=== PATIENT | male | born 1945 | race Caucasian/White ===

== ENCOUNTER 2019-01-22 13:29 | Inpatient (IN) | payer OTHER, MEDICARE ==
[~2019-01-22] VITALS: Ht 175.3 cm; Wt 75.3 kg
[2019-01-22 14:39] LABS: PLATELET COUNT 239 x10^3mcL (130-400)
[2019-01-22 14:40] LABS: BASOPHIL % 0 % (0-2); RED CELL DISTRIBUTION WIDTH 14.6 % (11.5-14.5)
[2019-01-22 14:46] LABS: CALCIUM 8.9 mg/dL (8.5-10.1); CARBON DIOXIDE 32.1 mmol/L (21-32); CHLORIDE SERUM 104 mmol/L (98-107); CREATININE SERUM 0.8 mg/dL (0.7-1.3); GLUCOSE SERUM 130 mg/dL (74-106); POTASSIUM SERUM 4.1 mmol/L (3.5-5.1); SODIUM SERUM 142 mmol/L (136-145)
[2019-01-22 14:58] LABS: ALBUMIN 3.4 g/dL (3.4-5.0); ALKALINE PHOSPHATASE 61 U/L (46-116); ALT/SGPT 27 U/L (16-63); AST/SGOT 19 U/L (15-37); TOTAL PROTEIN, SERUM 7.9 g/dL (6.4-8.2)
[2019-01-22 15:05] LABS: T4(THYROXINE) 9.6 ug/dL (4.7-13.3)
[2019-01-22 15:18] LABS: microscopic required? NO
[2019-01-22 15:21] LABS: CK-MB 3.3 ng/mL (0-3.6)
[2019-01-22 15:34] LABS: UA SPECIFIC GRAVITY >=1.030 (1.005-1.035); urine erythrocyte NEGATIVE (NEGATIVE)
[2019-01-22 15:37] LABS: BILIRUBIN TOTAL 0.17 mg/dL (0.20-1.00)
[2019-01-22 16:50] LABS: CHOLESTEROL/HDL RATIO 3.3; MAGNESIUM 2.2 mg/dL (1.8-2.4); PHOSPHOROUS 4.8 mg/dL (2.5-4.9)
[2019-01-22 17:36] LABS: AMPHETAMINE QUAL UR NONE DETECTED (See below)
[2019-01-22 17:41] VITALS: BP 135/73
[2019-01-22] MEDS ORDERED: NOR5 PO (17:46)
[2019-01-22] MEDS ORDERED: REM15 PO (17:48)
[2019-01-22] MEDS ORDERED: ASPIR 8181 MG PO (17:48)
[2019-01-22] MEDS ORDERED: PLA75 PO (17:49)
[2019-01-22] MEDS ORDERED: ZYPREXA15 M1 PO (17:49)
[2019-01-22 21:24] VITALS: BP 140/71
[2019-01-23 05:52] VITALS: BP 137/65
[2019-01-23 07:36] LABS: PLATELET COUNT 209 x10^3mcL (130-400); RED CELL DISTRIBUTION WIDTH 14.5 % (11.5-14.5)
[2019-01-23 07:48] LABS: BASOPHIL % 0 % (0-2)
[2019-01-23 07:59] VITALS: BP 139/70
[2019-01-23 08:08] LABS: CALCIUM 8.6 mg/dL (8.5-10.1); CARBON DIOXIDE 28.4 mmol/L (21-32); CHLORIDE SERUM 108 mmol/L (98-107); CREATININE SERUM 0.6 mg/dL (0.7-1.3); GLUCOSE SERUM 127 mg/dL (74-106); POTASSIUM SERUM 4.4 mmol/L (3.5-5.1); SODIUM SERUM 142 mmol/L (136-145)
[2019-01-23 12:15] VITALS: BP 155/65
[2019-01-23 16:42] VITALS: BP 126/66
[2019-01-23 21:38] VITALS: BP 143/71
[2019-01-24] VITALS (19 sets, daily range): BP systolic 103–142; BP diastolic 54–102
[2019-01-24 06:52] LABS: CARBON DIOXIDE 27.7 mmol/L (21-32); CHLORIDE SERUM 110 mmol/L (98-107); CREATININE SERUM 0.9 mg/dL (0.7-1.3); GLUCOSE SERUM 130 mg/dL (74-106); MAGNESIUM 2.2 mg/dL (1.8-2.4); PHOSPHOROUS 3.1 mg/dL (2.5-4.9); POTASSIUM SERUM 5.1 mmol/L (3.5-5.1); SODIUM SERUM 146 mmol/L (136-145)
[2019-01-24 07:11] LABS: BASOPHIL % 0.8 % (0-2); PLATELET COUNT 190 x10^3mcL (130-400); RED CELL DISTRIBUTION WIDTH 14.5 % (11.5-14.5)
[2019-01-25] VITALS (17 sets, daily range): BP systolic 107–130; BP diastolic 50–98
[2019-01-25 05:52] LABS: PLATELET COUNT 166 x10^3mcL (130-400)
[2019-01-25 05:53] LABS: BASOPHIL % 0 % (0-2); RED CELL DISTRIBUTION WIDTH 14.7 % (11.5-14.5)
[2019-01-25 05:59] LABS: CALCIUM 8.4 mg/dL (8.5-10.1); CARBON DIOXIDE 35.2 mmol/L (21-32); CHLORIDE SERUM 110 mmol/L (98-107); CREATININE SERUM 0.6 mg/dL (0.7-1.3); GLUCOSE SERUM 142 mg/dL (74-106); MAGNESIUM 2.7 mg/dL (1.8-2.4); POTASSIUM SERUM 4.4 mmol/L (3.5-5.1); SODIUM SERUM 148 mmol/L (136-145)
[2019-01-26] VITALS (17 sets, daily range): BP systolic 107–145; BP diastolic 33–75
[2019-01-26 05:33] LABS: PLATELET COUNT 176 x10^3mcL (130-400)
[2019-01-26 05:42] LABS: BASOPHIL % 0 % (0-2)
[2019-01-26 05:47] LABS: CALCIUM 8.1 mg/dL (8.5-10.1); CARBON DIOXIDE 32.1 mmol/L (21-32); CHLORIDE SERUM 110 mmol/L (98-107); CREATININE SERUM 0.6 mg/dL (0.7-1.3); GLUCOSE SERUM 163 mg/dL (74-106); MAGNESIUM 2.7 mg/dL (1.8-2.4); PHOSPHOROUS 3.2 mg/dL (2.5-4.9); POTASSIUM SERUM 3.8 mmol/L (3.5-5.1); SODIUM SERUM 146 mmol/L (136-145)
[2019-01-27] VITALS (16 sets, daily range): BP systolic 77–123; BP diastolic 45–78
[2019-01-27 05:02] LABS: PLATELET COUNT 215 x10^3mcL (130-400)
[2019-01-27 05:09] LABS: CALCIUM 7.9 mg/dL (8.5-10.1); CARBON DIOXIDE 34.7 mmol/L (21-32); CHLORIDE SERUM 107 mmol/L (98-107); CREATININE SERUM 0.7 mg/dL (0.7-1.3); GLUCOSE SERUM 152 mg/dL (74-106); MAGNESIUM 2.4 mg/dL (1.8-2.4); PHOSPHOROUS 3.9 mg/dL (2.5-4.9); POTASSIUM SERUM 4.1 mmol/L (3.5-5.1); SODIUM SERUM 146 mmol/L (136-145)
[2019-01-27 05:10] LABS: BASOPHIL % 0 % (0-2); RED CELL DISTRIBUTION WIDTH 15.3 % (11.5-14.5)
[2019-01-28] VITALS (19 sets, daily range): BP systolic 83–119; BP diastolic 47–64
[2019-01-28 05:07] LABS: PLATELET COUNT 173 x10^3mcL (130-400); RED CELL DISTRIBUTION WIDTH 14.5 % (11.5-14.5)
[2019-01-28 05:13] LABS: BASOPHIL % 0 % (0-2)
[2019-01-28 05:26] LABS: CALCIUM 7.8 mg/dL (8.5-10.1); CARBON DIOXIDE 35.2 mmol/L (21-32); CHLORIDE SERUM 106 mmol/L (98-107); CREATININE SERUM 0.5 mg/dL (0.7-1.3); GLUCOSE SERUM 143 mg/dL (74-106); MAGNESIUM 2.4 mg/dL (1.8-2.4); PHOSPHOROUS 4.3 mg/dL (2.5-4.9); POTASSIUM SERUM 4.7 mmol/L (3.5-5.1); SODIUM SERUM 144 mmol/L (136-145)
[2019-01-29] VITALS (18 sets, daily range): BP systolic 88–125; BP diastolic 42–84
[2019-01-29 05:15] LABS: PLATELET COUNT 219 x10^3mcL (130-400)
[2019-01-29 05:17] LABS: RED CELL DISTRIBUTION WIDTH 15.5 % (11.5-14.5)
[2019-01-29 05:25] LABS: CALCIUM 8.1 mg/dL (8.5-10.1); CARBON DIOXIDE 34.3 mmol/L (21-32); CHLORIDE SERUM 106 mmol/L (98-107); CREATININE SERUM 0.5 mg/dL (0.7-1.3); GLUCOSE SERUM 157 mg/dL (74-106); MAGNESIUM 2.5 mg/dL (1.8-2.4); POTASSIUM SERUM 4.4 mmol/L (3.5-5.1); SODIUM SERUM 144 mmol/L (136-145)
[2019-01-29 05:40] LABS: BAND NEUTROPHIL 4 % (0-10); MONOCYTE 5 % (0-7); MYELOCYTE 1 % (0-2); SEGMENTED NEUTROPHILS 76 % (37-75)
[2019-01-29 05:51] LABS: PLATELET MORPHOLOGY PLATELETS NORMAL; acanthocyte (spur cell) 1+; rbc morphology (normal/abnorm) ABNORMAL (NORMAL)
[2019-01-29 13:23] LABS: FREE T4 1.2 ng/dL (0.76-1.46)
[2019-01-30] VITALS (18 sets, daily range): BP systolic 90–119; BP diastolic 43–69
[2019-01-30 04:55] LABS: PLATELET COUNT 204 x10^3mcL (130-400)
[2019-01-30 05:05] LABS: RED CELL DISTRIBUTION WIDTH 15.6 % (11.5-14.5)
[2019-01-30 05:20] LABS: CALCIUM 8.1 mg/dL (8.5-10.1); CARBON DIOXIDE 32.3 mmol/L (21-32); CHLORIDE SERUM 102 mmol/L (98-107); CREATININE SERUM 0.6 mg/dL (0.7-1.3); GLUCOSE SERUM 157 mg/dL (74-106); MAGNESIUM 2.4 mg/dL (1.8-2.4); PHOSPHOROUS 3.2 mg/dL (2.5-4.9)
[2019-01-30 05:46] LABS: BAND NEUTROPHIL 2 % (0-10); MONOCYTE 4 % (0-7); SEGMENTED NEUTROPHILS 79 % (37-75)
[2019-01-30 05:50] LABS: rbc morphology (normal/abnorm) ABNORMAL (NORMAL)
[2019-01-30 05:51] LABS: PLATELET MORPHOLOGY PLATELETS NORMAL
[2019-01-30 07:34] LABS: SODIUM SERUM 138 mmol/L (136-145)
[2019-01-31] VITALS (18 sets, daily range): BP systolic 93–152; BP diastolic 57–111
[2019-01-31 05:34] LABS: PLATELET COUNT 260 x10^3mcL (130-400)
[2019-01-31 05:35] LABS: CALCIUM 8.6 mg/dL (8.5-10.1); CARBON DIOXIDE 33.8 mmol/L (21-32); CHLORIDE SERUM 102 mmol/L (98-107); CREATININE SERUM 0.5 mg/dL (0.7-1.3); GLUCOSE SERUM 140 mg/dL (74-106); MAGNESIUM 2.3 mg/dL (1.8-2.4); POTASSIUM SERUM 4.3 mmol/L (3.5-5.1); SODIUM SERUM 138 mmol/L (136-145)
[2019-01-31 05:36] LABS: RED CELL DISTRIBUTION WIDTH 14.9 % (11.5-14.5)
[2019-01-31 09:30] LABS: BAND NEUTROPHIL 4 % (0-10); BASOPHIL 0 % (0-2); MONOCYTE 11 % (0-7); SEGMENTED NEUTROPHILS 79 % (37-75)
[2019-01-31 09:32] LABS: PLATELET MORPHOLOGY PLATELETS NORMAL; rbc morphology (normal/abnorm) ABNORMAL (NORMAL)
[2019-02-01] VITALS (19 sets, daily range): BP systolic 85–125; BP diastolic 42–92
[2019-02-01 05:29] LABS: PLATELET COUNT 259 x10^3mcL (130-400)
[2019-02-01 05:35] LABS: CALCIUM 8.5 mg/dL (8.5-10.1); CARBON DIOXIDE 33.7 mmol/L (21-32); CHLORIDE SERUM 102 mmol/L (98-107); CREATININE SERUM 0.6 mg/dL (0.7-1.3); GLUCOSE SERUM 118 mg/dL (74-106); POTASSIUM SERUM 4.3 mmol/L (3.5-5.1); RED CELL DISTRIBUTION WIDTH 15.1 % (11.5-14.5); SODIUM SERUM 139 mmol/L (136-145)
[2019-02-01 06:01] LABS: BAND NEUTROPHIL 8 % (0-10); BASOPHIL 0 % (0-2); MONOCYTE 9 % (0-7); SEGMENTED NEUTROPHILS 71 % (37-75); rbc morphology (normal/abnorm) ABNORMAL (NORMAL)
[2019-02-01 06:02] LABS: PLATELET MORPHOLOGY PLATELETS NORMAL
[2019-02-02] VITALS (9 sets, daily range): BP systolic 112–135; BP diastolic 51–70
[2019-02-02 05:16] LABS: BASOPHIL % 0.1 % (0-2); PLATELET COUNT 274 x10^3mcL (130-400)
[2019-02-02 05:17] LABS: RED CELL DISTRIBUTION WIDTH 15.4 % (11.5-14.5)
[2019-02-02 05:27] LABS: CALCIUM 8.4 mg/dL (8.5-10.1); CARBON DIOXIDE 32.3 mmol/L (21-32); CHLORIDE SERUM 103 mmol/L (98-107); CREATININE SERUM 0.6 mg/dL (0.7-1.3); GLUCOSE SERUM 131 mg/dL (74-106); MAGNESIUM 2.1 mg/dL (1.8-2.4); PHOSPHOROUS 3.3 mg/dL (2.5-4.9); POTASSIUM SERUM 4.1 mmol/L (3.5-5.1); SODIUM SERUM 139 mmol/L (136-145)
[2019-02-03 00:10] VITALS: BP 117/52
[2019-02-03 03:18] VITALS: BP 119/54
[2019-02-03 05:21] LABS: CALCIUM 8.5 mg/dL (8.5-10.1); CARBON DIOXIDE 32.1 mmol/L (21-32); CHLORIDE SERUM 104 mmol/L (98-107); CREATININE SERUM 0.8 mg/dL (0.7-1.3); GLUCOSE SERUM 89 mg/dL (74-106); MAGNESIUM 2.2 mg/dL (1.8-2.4); PHOSPHOROUS 3.1 mg/dL (2.5-4.9); POTASSIUM SERUM 3.9 mmol/L (3.5-5.1); SODIUM SERUM 140 mmol/L (136-145)
[2019-02-03 05:37] LABS: BASOPHIL % 0.3 % (0-2); PLATELET COUNT 289 x10^3mcL (130-400)
[2019-02-03 05:49] LABS: RED CELL DISTRIBUTION WIDTH 15.3 % (11.5-14.5)
[2019-02-03 08:00] VITALS: BP 107/52
[2019-02-03 12:45] VITALS: BP 131/61
[2019-02-03 16:00] VITALS: BP 128/58
[2019-02-03 20:00] VITALS: BP 129/58
[2019-02-04 05:31] VITALS: BP 132/58
[2019-02-04 08:43] LABS: BASOPHIL % 0.3 % (0-2); PLATELET COUNT 306 x10^3mcL (130-400)
[2019-02-04 08:44] LABS: RED CELL DISTRIBUTION WIDTH 16.1 % (11.5-14.5)
[2019-02-04 08:52] VITALS: BP 135/59
[2019-02-04 08:57] LABS: CALCIUM 8.8 mg/dL (8.5-10.1); CARBON DIOXIDE 33.2 mmol/L (21-32); CHLORIDE SERUM 102 mmol/L (98-107); CREATININE SERUM 0.7 mg/dL (0.7-1.3); GLUCOSE SERUM 96 mg/dL (74-106); MAGNESIUM 2.1 mg/dL (1.8-2.4); POTASSIUM SERUM 3.9 mmol/L (3.5-5.1); SODIUM SERUM 138 mmol/L (136-145)
[2019-02-04 13:28] VITALS: BP 133/67
[2019-02-04 17:09] VITALS: BP 142/67
[2019-02-04 21:58] VITALS: BP 129/53
[2019-02-05 05:15] VITALS: BP 135/60
[2019-02-05 06:35] LABS: CALCIUM 8.8 mg/dL (8.5-10.1); CARBON DIOXIDE 33.2 mmol/L (21-32); CHLORIDE SERUM 105 mmol/L (98-107); CREATININE SERUM 0.6 mg/dL (0.7-1.3); GLUCOSE SERUM 107 mg/dL (74-106); MAGNESIUM 2.2 mg/dL (1.8-2.4); PHOSPHOROUS 3.5 mg/dL (2.5-4.9); POTASSIUM SERUM 4.3 mmol/L (3.5-5.1); SODIUM SERUM 143 mmol/L (136-145)
[2019-02-05 06:36] LABS: BASOPHIL % 0.1 % (0-2); PLATELET COUNT 302 x10^3mcL (130-400); RED CELL DISTRIBUTION WIDTH 16.3 % (11.5-14.5)
[2019-02-05 09:31] VITALS: BP 141/69
[2019-02-05 13:31] VITALS: BP 128/81
[2019-02-05 16:38] VITALS: BP 127/79
[2019-02-05 21:16] VITALS: BP 115/55
[2019-02-06 05:42] VITALS: BP 125/53
[2019-02-06 07:30] LABS: CALCIUM 8.6 mg/dL (8.5-10.1); CARBON DIOXIDE 32.2 mmol/L (21-32); CHLORIDE SERUM 105 mmol/L (98-107); CREATININE SERUM 0.6 mg/dL (0.7-1.3); GLUCOSE SERUM 92 mg/dL (74-106); MAGNESIUM 2.1 mg/dL (1.8-2.4); PHOSPHOROUS 2.8 mg/dL (2.5-4.9); POTASSIUM SERUM 3.9 mmol/L (3.5-5.1); SODIUM SERUM 143 mmol/L (136-145)
[2019-02-06 08:32] LABS: BASOPHIL % 0.1 % (0-2); PLATELET COUNT 298 x10^3mcL (130-400); RED CELL DISTRIBUTION WIDTH 16.5 % (11.5-14.5)
[2019-02-06 08:34] VITALS: BP 138/63
[2019-02-06 12:30] VITALS: BP 143/53
[2019-02-06 16:07] VITALS: BP 117/57
[2019-02-06 20:39] VITALS: BP 124/53
[2019-02-07] VITALS (14 sets, daily range): BP systolic 74–140; BP diastolic 16–73
[2019-02-07 07:09] LABS: BASOPHIL % 0.2 % (0-2); PLATELET COUNT 310 x10^3mcL (130-400); RED CELL DISTRIBUTION WIDTH 17.4 % (11.5-14.5)
[2019-02-07 08:20] LABS: CALCIUM 8.7 mg/dL (8.5-10.1); CARBON DIOXIDE 33.6 mmol/L (21-32); CHLORIDE SERUM 105 mmol/L (98-107); CREATININE SERUM 0.7 mg/dL (0.7-1.3); GLUCOSE SERUM 107 mg/dL (74-106); MAGNESIUM 2.2 mg/dL (1.8-2.4); POTASSIUM SERUM 3.6 mmol/L (3.5-5.1); SODIUM SERUM 143 mmol/L (136-145)
[2019-02-08] VITALS (19 sets, daily range): BP systolic 89–127; BP diastolic 40–67
[2019-02-08 05:34] LABS: PLATELET COUNT 221 x10^3mcL (130-400)
[2019-02-08 06:06] LABS: CALCIUM 7.8 mg/dL (8.5-10.1); CARBON DIOXIDE 26.5 mmol/L (21-32); CHLORIDE SERUM 110 mmol/L (98-107); GLUCOSE SERUM 153 mg/dL (74-106); POTASSIUM SERUM 3.4 mmol/L (3.5-5.1); SODIUM SERUM 143 mmol/L (136-145)
[2019-02-08 06:08] LABS: RED CELL DISTRIBUTION WIDTH 18.1 % (11.5-14.5)
[2019-02-08 06:18] LABS: BAND NEUTROPHIL 8 % (0-10); MONOCYTE 2 % (0-7); SEGMENTED NEUTROPHILS 83 % (37-75)
[2019-02-08 06:22] LABS: rbc morphology (normal/abnorm) ABNORMAL (NORMAL)
[2019-02-08 06:23] LABS: PLATELET MORPHOLOGY PLATELETS NORMAL
[2019-02-09] VITALS (16 sets, daily range): BP systolic 108–135; BP diastolic 50–76
[2019-02-09 05:25] LABS: PLATELET COUNT 210 x10^3mcL (130-400)
[2019-02-09 05:37] LABS: CALCIUM 8.3 mg/dL (8.5-10.1); CHLORIDE SERUM 111 mmol/L (98-107); CREATININE SERUM 0.7 mg/dL (0.7-1.3); GLUCOSE SERUM 116 mg/dL (74-106); MAGNESIUM 2.1 mg/dL (1.8-2.4); PHOSPHOROUS 1.7 mg/dL (2.5-4.9); POTASSIUM SERUM 3.7 mmol/L (3.5-5.1); SODIUM SERUM 134 mmol/L (136-145)
[2019-02-09 05:48] LABS: BASOPHIL % 0 % (0-2); RED CELL DISTRIBUTION WIDTH 18.3 % (11.5-14.5)
[2019-02-10] VITALS (18 sets, daily range): BP systolic 117–154; BP diastolic 38–99
[2019-02-10 05:18] LABS: PLATELET COUNT 200 x10^3mcL (130-400)
[2019-02-10 05:22] LABS: CALCIUM 8.2 mg/dL (8.5-10.1); CHLORIDE SERUM 107 mmol/L (98-107); CREATININE SERUM 0.6 mg/dL (0.7-1.3); GLUCOSE SERUM 123 mg/dL (74-106); PHOSPHOROUS 2.9 mg/dL (2.5-4.9); POTASSIUM SERUM 3.8 mmol/L (3.5-5.1); SODIUM SERUM 142 mmol/L (136-145)
[2019-02-10 05:33] LABS: BASOPHIL % 0 % (0-2); RED CELL DISTRIBUTION WIDTH 18.3 % (11.5-14.5)
[2019-02-11] VITALS (18 sets, daily range): BP systolic 109–146; BP diastolic 38–77
[2019-02-11 05:25] LABS: BASOPHIL % 0.2 % (0-2); PLATELET COUNT 215 x10^3mcL (130-400)
[2019-02-11 05:26] LABS: RED CELL DISTRIBUTION WIDTH 16.5 % (11.5-14.5)
[2019-02-11 05:39] LABS: CALCIUM 8.6 mg/dL (8.5-10.1); CARBON DIOXIDE 26.8 mmol/L (21-32); CHLORIDE SERUM 107 mmol/L (98-107); CREATININE SERUM 0.5 mg/dL (0.7-1.3); GLUCOSE SERUM 124 mg/dL (74-106); MAGNESIUM 2.1 mg/dL (1.8-2.4); PHOSPHOROUS 3.5 mg/dL (2.5-4.9); POTASSIUM SERUM 3.8 mmol/L (3.5-5.1); SODIUM SERUM 141 mmol/L (136-145)
[2019-02-12] VITALS (18 sets, daily range): BP systolic 91–148; BP diastolic 42–78
[2019-02-12 05:25] LABS: BASOPHIL % 0.4 % (0-2); PLATELET COUNT 214 x10^3mcL (130-400)
[2019-02-12 05:30] LABS: RED CELL DISTRIBUTION WIDTH 17.9 % (11.5-14.5)
[2019-02-12 05:48] LABS: CALCIUM 8.7 mg/dL (8.5-10.1); CARBON DIOXIDE 27.3 mmol/L (21-32); CHLORIDE SERUM 106 mmol/L (98-107); CREATININE SERUM 0.6 mg/dL (0.7-1.3); GLUCOSE SERUM 117 mg/dL (74-106); PHOSPHOROUS 3.5 mg/dL (2.5-4.9); POTASSIUM SERUM 3.8 mmol/L (3.5-5.1); SODIUM SERUM 140 mmol/L (136-145)
[2019-02-13] VITALS (18 sets, daily range): BP systolic 86–135; BP diastolic 46–81
[2019-02-13 07:29] LABS: BASOPHIL % 0.1 % (0-2); PLATELET COUNT 234 x10^3mcL (130-400)
[2019-02-13 07:32] LABS: RED CELL DISTRIBUTION WIDTH 17.8 % (11.5-14.5)
[2019-02-13 07:57] LABS: CALCIUM 8.8 mg/dL (8.5-10.1); CARBON DIOXIDE 27.9 mmol/L (21-32); CHLORIDE SERUM 103 mmol/L (98-107); CREATININE SERUM 0.6 mg/dL (0.7-1.3); GLUCOSE SERUM 113 mg/dL (74-106); MAGNESIUM 2.2 mg/dL (1.8-2.4); POTASSIUM SERUM 4.3 mmol/L (3.5-5.1); SODIUM SERUM 135 mmol/L (136-145)
[2019-02-14] VITALS (19 sets, daily range): BP systolic 109–129; BP diastolic 48–77
[2019-02-14 04:51] LABS: BASOPHIL % 1.6 % (0-2); PLATELET COUNT 222 x10^3mcL (130-400); RED CELL DISTRIBUTION WIDTH 16.8 % (11.5-14.5)
[2019-02-14 04:54] LABS: CALCIUM 8.5 mg/dL (8.5-10.1); CARBON DIOXIDE 23.8 mmol/L (21-32); CHLORIDE SERUM 104 mmol/L (98-107); CREATININE SERUM 0.4 mg/dL (0.7-1.3); GLUCOSE SERUM 128 mg/dL (74-106); MAGNESIUM 2.5 mg/dL (1.8-2.4); PHOSPHOROUS 3.2 mg/dL (2.5-4.9); POTASSIUM SERUM 4.2 mmol/L (3.5-5.1); SODIUM SERUM 134 mmol/L (136-145)
[2019-02-15] VITALS (16 sets, daily range): BP systolic 96–153; BP diastolic 53–85
[2019-02-15 05:26] LABS: PLATELET COUNT 267 x10^3mcL (130-400)
[2019-02-15 05:30] LABS: CALCIUM 8.6 mg/dL (8.5-10.1); CARBON DIOXIDE 26.8 mmol/L (21-32); CHLORIDE SERUM 105 mmol/L (98-107); CREATININE SERUM 0.6 mg/dL (0.7-1.3); GLUCOSE SERUM 125 mg/dL (74-106); PHOSPHOROUS 3.2 mg/dL (2.5-4.9); POTASSIUM SERUM 3.4 mmol/L (3.5-5.1); SODIUM SERUM 138 mmol/L (136-145)
[2019-02-15 05:35] LABS: RED CELL DISTRIBUTION WIDTH 17.3 % (11.5-14.5)
[2019-02-15 05:50] LABS: BAND NEUTROPHIL 1 % (0-10); MONOCYTE 8 % (0-7); MYELOCYTE 1 % (0-2); SEGMENTED NEUTROPHILS 64 % (37-75)
[2019-02-15 05:52] LABS: PLATELET MORPHOLOGY PLATELETS NORMAL; rbc morphology (normal/abnorm) ABNORMAL (NORMAL)
[2019-02-16] VITALS (21 sets, daily range): BP systolic 87–132; BP diastolic 49–94; Ht 175.3 cm; Wt 75.3 kg
[2019-02-16 05:22] LABS: BASOPHIL % 0.2 % (0-2); PLATELET COUNT 260 x10^3mcL (130-400)
[2019-02-16 05:28] LABS: RED CELL DISTRIBUTION WIDTH 18.1 % (11.5-14.5)
[2019-02-16 05:42] LABS: CALCIUM 8.7 mg/dL (8.5-10.1); CARBON DIOXIDE 28.5 mmol/L (21-32); CHLORIDE SERUM 103 mmol/L (98-107); CREATININE SERUM 0.6 mg/dL (0.7-1.3); GLUCOSE SERUM 102 mg/dL (74-106); MAGNESIUM 2.1 mg/dL (1.8-2.4); PHOSPHOROUS 3.7 mg/dL (2.5-4.9); POTASSIUM SERUM 4.1 mmol/L (3.5-5.1); SODIUM SERUM 136 mmol/L (136-145)
[2019-02-17] VITALS (18 sets, daily range): BP systolic 96–124; BP diastolic 46–72
[2019-02-17 04:53] LABS: BASOPHIL % 0.4 % (0-2); PLATELET COUNT 285 x10^3mcL (130-400)
[2019-02-17 05:02] LABS: RED CELL DISTRIBUTION WIDTH 18.2 % (11.5-14.5)
[2019-02-17 05:03] LABS: CALCIUM 8.7 mg/dL (8.5-10.1); CARBON DIOXIDE 28.7 mmol/L (21-32); CHLORIDE SERUM 104 mmol/L (98-107); CREATININE SERUM 0.6 mg/dL (0.7-1.3); GLUCOSE SERUM 132 mg/dL (74-106); PHOSPHOROUS 3.1 mg/dL (2.5-4.9); SODIUM SERUM 139 mmol/L (136-145)
[2019-02-18] VITALS (15 sets, daily range): BP systolic 98–159; BP diastolic 39–82
[2019-02-18 04:50] LABS: BASOPHIL % 0.3 % (0-2); PLATELET COUNT 279 x10^3mcL (130-400)
[2019-02-18 04:52] LABS: RED CELL DISTRIBUTION WIDTH 18.3 % (11.5-14.5)
[2019-02-18 04:57] LABS: CALCIUM 8.7 mg/dL (8.5-10.1); CARBON DIOXIDE 31.7 mmol/L (21-32); CHLORIDE SERUM 104 mmol/L (98-107); CREATININE SERUM 0.5 mg/dL (0.7-1.3); GLUCOSE SERUM 132 mg/dL (74-106); MAGNESIUM 2.1 mg/dL (1.8-2.4); PHOSPHOROUS 3.4 mg/dL (2.5-4.9); POTASSIUM SERUM 4.2 mmol/L (3.5-5.1); SODIUM SERUM 138 mmol/L (136-145)
[2019-02-18] MEDS ORDERED: METOPROLOL TART25 M1 NG (14:35)
[2019-02-18] MEDS ORDERED: HEP5I SC (14:35)
== END 2019-02-18 19:45 | DRG 5 ==
LOC: ED 13:29 → IC 16:14 → DU 16:14 → IC 01-24 02:10 → DU 02-03 17:41 → IC 02-03 17:42 → DU 02-03 19:02 → IC 02-07 11:18 → DU 02-07 11:48 → IC 02-07 11:49
PROVIDERS: Emergency Medicine; General Practice; Internal Medicine; Pediatrics Pediatric Cardiology; Specialist; ADMIT Internal Medicine
PROC: 5A1955Z Respiratory Ventilation, Greater than 96 Consecutive Hours (ICD-10-PCS; principal; 2019-01-22)
PROC: 0BH17EZ Insertion of Endotracheal Airway into Trachea, Via Natural or Artificial Opening (ICD-10-PCS; 2019-01-22)
PROC: 0DB68ZX Excision of Stomach, Via Natural or Artificial Opening Endoscopic, Diagnostic (ICD-10-PCS; 2019-01-25)
PROC: 5A1955Z Respiratory Ventilation, Greater than 96 Consecutive Hours (ICD-10-PCS; 2019-02-07)
PROC: 0BH17EZ Insertion of Endotracheal Airway into Trachea, Via Natural or Artificial Opening (ICD-10-PCS; 2019-02-07)
PROC: 0B110F4 Bypass Trachea to Cutaneous with Tracheostomy Device, Open Approach (ICD-10-PCS; 2019-02-15)
PROC: 0DH68UZ Insertion of Feeding Device into Stomach, Via Natural or Artificial Opening Endoscopic (ICD-10-PCS; 2019-02-15)
DX: J96.21 Acute and chronic respiratory failure with hypoxia (principal); J69.0 Pneumonitis due to inhalation of food and vomit; N17.0 Acute kidney failure with tubular necrosis; E87.0 Hyperosmolality and hypernatremia; E44.1 Mild protein-calorie malnutrition; K56.7 Ileus, unspecified; E83.51 Hypocalcemia; J96.22 Acute and chronic respiratory failure with hypercapnia; J44.1 Chronic obstructive pulmonary disease with (acute) exacerbation; J61 Pneumoconiosis due to asbestos and other mineral fibers; F20.0 Paranoid schizophrenia; E02 Subclinical iodine-deficiency hypothyroidism; I47.1 Supraventricular tachycardia; I10 Essential (primary) hypertension; E78.5 Hyperlipidemia, unspecified; D64.9 Anemia, unspecified; I25.2 Old myocardial infarction; Z68.24 Body mass index [BMI] 24.0-24.9, adult; Z87.891 Personal history of nicotine dependence
CPT/HCPCS: 31500; 36600; 43235; 82962; 84439; 92526-GN; 92610; 97110-GP; 97112-GP; 97116-GP; 97530-GP; 99406; A4628; C9113; J0282; J0330; J0690; J0744; J1200; J1450; J1610; J1644; J1940; J2060; J2250; J2310; J2405; J2543; J2704; J2920; J2930; J3010; J3370; J3480; J3490; J7030; J7040; J7042; J7120; J7512; J7613; J7620; J7626; J7644; Q0092

== ENCOUNTER 2019-02-23 10:15 | Inpatient (IN) | payer OTHER, MEDICARE ==
[~2019-02-23] VITALS: Ht 170.2 cm; Wt 72.0 kg
[2019-02-23] VITALS (8 sets, daily range): BP systolic 84–137; BP diastolic 44–78
[~2019-02-23 10:15] MED LIST: ASPIR 8181 MG PO; HEP5I SC; METOPROLOL TART25 M1 NG; NOR5 PO; PLA75 PO; REM15 PO; ZYPREXA15 M1 PO
--- NOTE | 2019-02-23 10:30 | NUR ---
PATIENT BROUGHT IN BY [facility] [place] WITH C/O VOMITING OF COFFEE GROUND COLORED EMESIS. PATIENT IS HAS A TRACH IN PLACE AND WAS IMMEDIATELY VENTED BY PRODUCTION BROACHER. BREATH SOUNDS CONGESTED WITH VENT IN PLACE BILATERAL UPPER AND LOWER LOBES. ABD DISTENDED, NON TENDER WITH BS HEARD ON ALL 4 QUADS. STAGE 1 WOUND ON BUTTOCKS NOTED. PATIENT PLACED ON ALL MONITORS FOR FURTHER EVALUATION.
[2019-02-23 10:47] LABS: PLATELET COUNT 372 x10^3mcL (130-400)
[2019-02-23 10:49] LABS: RED CELL DISTRIBUTION WIDTH 16.9 % (11.5-14.5)
[2019-02-23] MEDS ORDERED: TYLENOL325 M1 GT (10:50)
[2019-02-23] MEDS ORDERED: ZOF4 GT (10:50)
[2019-02-23] MEDS ORDERED: MOM GT (10:51)
[2019-02-23] MEDS ORDERED: COLACE100 MG GT (10:51)
[2019-02-23] MEDS ORDERED: MUCINEX600 MG GT (10:52)
[2019-02-23] MEDS ORDERED: DULCOLAX10 M1 PR (10:52)
[2019-02-23] MEDS ORDERED: PLA75 GT (10:54)
[2019-02-23] MEDS ORDERED: ASPIRIN ADULT L81 M5 GT (10:54)
[2019-02-23] MEDS ORDERED: MIRTAZAPINE15 M2 GT (10:55)
[2019-02-23] MEDS ORDERED: AMLODIPINE BESYL5 M2 GT (10:56)
--- NOTE | 2019-02-23 10:57 | NUR ---
MED REC COMPLETED USING MED REC FORM FROM [facility].
[2019-02-23 11:04] LABS: CALCIUM 9.5 mg/dL (8.5-10.1); CARBON DIOXIDE 39.5 mmol/L (21-32); CHLORIDE SERUM 90 mmol/L (98-107); CREATININE SERUM 0.9 mg/dL (0.7-1.3); GLUCOSE SERUM 156 mg/dL (74-106); POTASSIUM SERUM 4.6 mmol/L (3.5-5.1); SODIUM SERUM 133 mmol/L (136-145)
[2019-02-23 11:09] LABS: ALBUMIN 2.4 g/dL (3.4-5.0); ALKALINE PHOSPHATASE 70 U/L (46-116); ALT/SGPT 13 U/L (16-63); AST/SGOT 11 U/L (15-37); BILIRUBIN TOTAL 0.5 mg/dL (0.20-1.00); TOTAL PROTEIN, SERUM 7.1 g/dL (6.4-8.2)
--- NOTE | 2019-02-23 11:16 | NUR ---
CLEANED PATIENT UP, PROVIDED CLEAN GOWN AND CHANGED DIAPER- NO S/S OF DISTRESS NOTED. WILL CONTINUE TO MONITOR.
[2019-02-23 11:59] LABS: BAND NEUTROPHIL 17 % (0-10); BASOPHIL 0 % (0-2); MONOCYTE 8 % (0-7); SEGMENTED NEUTROPHILS 63 % (37-75)
[2019-02-23 12:00] LABS: rbc morphology (normal/abnorm) ABNORMAL (NORMAL)
[2019-02-23 12:01] LABS: PLATELET MORPHOLOGY PLATELETS NORMALPN
--- NOTE | 2019-02-23 12:08 | NUR ---
BEDSIDE INSERTING CATH
--- NOTE | 2019-02-23 12:37 | NUR ---
XRAY AT BEDSIDE CONFIRMING CENTRAL LINE
--- NOTE | 2019-02-23 13:22 | NUR ---
PATIENT RESTING COMFORTABLY ON GURNEY. NO S/S OF DISTRESS NOTED. SIDE RAILS UP, GURNEY IN LOW POSITION. PATIENT REQUESTED LIGHTS OFF SO HE CAN REST. WILL CONTINUE TO MONITOR.
--- NOTE | 2019-02-23 13:33 | NUR ---
LACTID ACID, 2.1, ER NOTIFIED.
--- NOTE | 2019-02-23 16:40 | NUR ---
RESPIRATORY AT BEDSIDE MANAGING TRACH AND CHANGING STRAPS. PATIENT TOLERATED WELL. PATIENT CLEANED UP, LINENS CHANGED AND CLEAN GOWN PLACED ON PATIENT. PATIENT BACK ON ALL MONITORS. WILL CONTINUE TO MONITOR.
--- NOTE | 2019-02-23 17:01 | NUR ---
PATIENT RESTING COMFORTABLY ON GURNEY. NO S/S OF DISTRESS NOTED. WILL CONTINUE TO MONITOR.
--- NOTE | 2019-02-23 17:21 | NUR ---
REPORT GIVEN TO KEL NYE ICU FOR FURTHER CARE OF PATIENT.
--- NOTE | 2019-02-23 17:32 | NUR ---
TRANSFER TO ICU ASSISTED BY RT, RN AND EMT.
--- NOTE | 2019-02-23 17:40 | NUR ---
RECEIVED REPORT FROM KEL NICKERSON. PT IS ALERT AND RESPONSIVE TO COMMANDS. PUPILS 3 MM AND BRISK BILATERALLY. PT HAS #[address], PATENT, AND INTACT CONNECTED TO VENT. TRACH SITE IS RED, AND PAINFUL TO THE TOUCH. PT ALSO HAS DARK BROWN SECRETIONS COMING FROM SITE, DR. PRICE MADE AWARE. VENT SETTINGS INCLUDE RATE: 14, TV: 500, O2: 30%, PEEP: 5. RNGT PATENT, AND INTACT. PEG TUBE PATENT, AND INTACT TO LUQ. PT IS BREATHING E/U. LUNG SOUNDS SHOW COURSE CRACKLES TO BUL, DIMINISHED TO BLL. S1 S2 HEART SOUNDS AUSCULTATED. RIJ CVC PATENT, INTACT WITH LARGE AMT OF BLOODY DRAINAGE. SAND BAG PLACED TO SITE FOR CLOTTING. NS INFUSING AT 120 ML/HR. +1 EDEMA TO BLE. SCD IN PLACE. ABD IS SOFT AND DISTENDED WITH HYPOACTIVE BOWEL SOUNDS X4Q. PT INCONTINENT OF URINE AND BOWELS. PT HAS OPEN WOUND TO R BUTTOCK WITH OPTIFOAM IN PLACE. PT HAS LLQ OPEN WOUND OPEN TO AIR. BUE ECCHYMOSIS. BED IN LOWEST POSITION. CALL LIGHT IN REACH.
--- NOTE | 2019-02-23 19:00 | NUR ---
ATTEMPTED NIXON INSERTION AND WAS UNSUCCESSFUL TWICE WITH 16 FR, AND 14 FR. WILL ATTEMPT AGAIN IN A COUPLE HOURS. PT IS INCONTINENT OF URINE.
--- NOTE | 2019-02-23 21:10 | NUR ---
PT CONNECTED TO INTERMITTENT SUCTION FROM G TUBE. NGT PLACEMENT HAS NOT BEEN VERIFIED, THEREFORE NOT IN USE AT THIS TIME.
--- NOTE | 2019-02-23 21:51 | NUR ---
COLLECTED GASTRIC SECRETIONS FOR OCCULT BLOOD TEST FROM NGT. WILL SEND TO LAB.
[2019-02-24] VITALS (16 sets, daily range): BP systolic 88–118; BP diastolic 45–75
--- NOTE | 2019-02-24 01:17 | NUR ---
REMOVED NG TUBE FROM RIGHT NARE. PT KEPT TEARING TAPE OFF NOSE. EDUCATED PT MANY TIMES NOT TO REMOVE, WITH NO SUCCESS. NGT NOT NECESSARY, AND PER DR. PRICE, WAS TOLD TO REMOVE DUE TO PT HAVING ACCESS THROUGH PEG TUBE.
--- NOTE | 2019-02-24 01:18 | NUR ---
PT RIJ CVC DRESSING CHANGED. SAND BAG REMOVED FROM SITE.
--- NOTE | 2019-02-24 01:40 | NUR ---
CHARLI ZUÑIGA COLLECTED SPUTUM CULTURE AT BEDSIDE.
[2019-02-24 05:05] LABS: CALCIUM 7.7 mg/dL (8.5-10.1); CARBON DIOXIDE 29.8 mmol/L (21-32); CHLORIDE SERUM 100 mmol/L (98-107); CREATININE SERUM 0.8 mg/dL (0.7-1.3); GLUCOSE SERUM 80 mg/dL (74-106); MAGNESIUM 2.7 mg/dL (1.8-2.4); PHOSPHOROUS 4.3 mg/dL (2.5-4.9); POTASSIUM SERUM 4.4 mmol/L (3.5-5.1); SODIUM SERUM 135 mmol/L (136-145)
[2019-02-24 05:20] LABS: BASOPHIL % 0.1 % (0-2); PLATELET COUNT 225 x10^3mcL (130-400)
[2019-02-24 05:24] LABS: RED CELL DISTRIBUTION WIDTH 17.3 % (11.5-14.5)
[2019-02-24 05:25] LABS: rbc morphology (normal/abnorm) ABNORMAL (NORMAL)
--- NOTE | 2019-02-24 05:36 | NUR ---
NIXON PLACED. PT TOLERATED WELL.
--- NOTE | 2019-02-24 06:15 | NUR ---
PT SIGNED CONSENT FOR BLOOD TRANSFUSION. CONSENT FORM PLACED IN CHART.
--- NOTE | 2019-02-24 07:15 | NUR ---
RECIEVED REPORT FROM KEL NYE TO ASSUME ALL CARES. ALL QUESTIONS AND CONCERNS ADDRESSED. PATIENT CURRENLTY AWAKE/ALERT. TRACH TO VENT. RESPIRATIONS ARE EQUAL AND SYMMETRICAL. NO SIGNS OF DISTRESS. VSS. TUBE FEEDINGS INFUSING VIA PEG TUBE. F/C IN PLACE AND DRAINING TO GRAVITY. SCD'S ON TO BLE. FLUIDS INFUSING TO RIGHT SUBCLAVIAN CENTRAL LINE. BED TO LOWEST POSITION, SIDE RAILS UP X2, CALL LIGHT WITHIN REACH. WILL CONTINUE TO MONITOR.
--- NOTE | 2019-02-24 11:45 | NUR ---
FIRST UNIT OF TWO PRBC'S DONE INFUSING AT THIS TIME. TWO NURSE CHECK WITH KEL BANDA AND KEL YODER DONE PRIOR TO BLOOD TRANSFUSION. PATIENT WAS PRE-MEDICATED WITH TYLENLOL AND BENADRYL. PRE-VTIALS AT 0911: TEMP 98.6, HR 85, NIBP 110/61, RR 28, 02 SAT 96%. 15 MIN VITALS AT 0935: TEMP 98.4, HR 80, NIBP 100/47, RR 23, 02 SAT 98%. POST VITALS AT 1145: TEMP 98.3, HR 81, NIBP 108/51, RR 20, 02 SAT 96%. TOTAL OF 300 ML'S INFUSED. NO SIGNS OF ADVERSE REACTION. WILL CONTINUE TO MONITOR.
--- NOTE | 2019-02-24 11:54 | NUR ---
DR. VIVEROS AT BEDSIDE TO ASSESS PATIENT. UPDATES PROVIDED AND POC DISCUSSED. PATIENT REFUSING EGD PROCEDURE AT THIS TIME. NEW ORDERS PROVIDED, WILL FOLLOW AND CONTINUE TO MONITOR.
--- NOTE | 2019-02-24 12:12 | NUR ---
DR. ROTHMAN AT BEDSIDE TO ASSESS PATIENT. UPDATES PROVIDED AND POC DISCUSSED. WILL CONTINUE TO MONITOR.
--- NOTE | 2019-02-24 16:50 | NUR ---
SECOND UNIT OF PRBC'S DONE INFUSING AT THIS TIME. TWO NURSE CHECK DONE WITH SOLO RN AND KEL ODSS PRIOR TO INFUSING STARTING. PRE VITALS AT 1326: TEMP 98.2, HR 76, NIBP 110/52, RR 19, 02 SAT 98%. 15 MIN VITALS AT 1342: TEMP 98.2, HR 78, NIBP 119/57, RR 16, 02 SAT 97%. POST VITALS AT 1650: TEMP 98.4, HR 77, NIBP 118/61, RR 26, 02 SAT 98%. TOTAL OF 300 ML'S INFUSED. NO SIGNS OF ADVERSE REACTION. WILL CONTINUE TO MONITOR.
--- NOTE | 2019-02-24 17:40 | NUR ---
VITAL AF 1.2 TUBE FEEDINGS STARTED AT 20 ML/HR VIA PEG PER DR. VIVEROS ORDER. FWF 30 ML Q 4 HRS. WILL CONTINUE TO MONITOR.
--- NOTE | 2019-02-24 18:15 | NUR ---
PATIENT'S TRACH SITE IS LEAKING LARGE AMOUNT OF FLUID. COMPLETE LINEN CHANGED AND NEW GOWN APPLIED. WARM BLANKET PROVIDED TO PATIENT. PATIENT TOLERATED WELL. WILL CONTINUE TO MONITOR.
--- NOTE | 2019-02-24 19:05 | NUR ---
RECEIVED REPORT FROM SOLO BEGUM. ASSUMING ALL CARE
[2019-02-24 19:09] LABS: BASOPHIL % 0.1 % (0-2); PLATELET COUNT 230 x10^3mcL (130-400)
[2019-02-24 19:12] LABS: RED CELL DISTRIBUTION WIDTH 18.2 % (11.5-14.5)
--- NOTE | 2019-02-24 19:25 | NUR ---
RECEIVED PT LAYING IN BED WITH HOB ELEVATED. PT IS AWAKE/ALERT. ABLE TO FOLLOW COMMANDS. PERRLA NOTED BILAT. RESPONDS TO VERBAL STIMULI. SHILEY 8.[address] ORAL CARE PROVIDED PER VAP PROTOCOL. RIGHT SUBCLAVIAN CVC IN PLACE WITH DRESSING CDI. BREATHING IS E/U ON VENT. RHONCHI NOTED BILAT. VENT SETTINGS: VCV/AC MODE: RATE 14, FIO2 30%, VT 500, PEEP 5. SYMMETRICAL CHEST EXPANSION NOTED. S1/S2 HEART SOUNDS AUSCULTATED. CHEST WALL EQUAL AND SYMMETRICAL. HR 78, BP 113/52 MAP 76. PALPABLE PULSES X4 EXTREMITIES. SKIN IS WARM AND DRY. NONPITTING EDEMA NOTED TO BUE/BLE. SCD IN PLACE. NS INFUSING @ 50 ML/HR. PT ON JEVITY TF VIA PEG INFUSING @ 20 ML/HR WITH 30 ML FWF Q4H. GRV=10, REPLACED. TOLERATING WELL. ABD IS SOFT, ROUND, NONTENDER TO PALPATION. BOWEL SOUNDS ACTIVE X4 QUADRANTS. PEG WITH DRESSING CDI. PT HAS NIXON INTACT/ SECURED, DRAINING VIA GRAVITY WITH DRE COLORED URINE. OPEN WOUND TO RIGHT BUTTOCK WITH OPTIFOAM DRESSING IN PLACE. OPEN WOUND LLQ NOTED ADAM. ECCHYMOSIS NOTED TO BUE. PT REPOSITIONED Q2H AND PRN FOR COMFORT. PT CALM AT THIS TIME. BED IN LOW POSITION. CALL LIGHT IN REACH. WILL CONT TO MONITOR
--- NOTE | 2019-02-24 20:45 | NUR ---
RT AT BEDSIDE FOR BREATHING TREATMENT
[2019-02-25] VITALS (18 sets, daily range): BP systolic 103–124; BP diastolic 49–62; Ht 170.2 cm; Wt 72.0 kg
--- NOTE | 2019-02-25 02:00 | NUR ---
RT AT BEDSIDE FOR BREATHING TREATMENT
--- NOTE | 2019-02-25 04:33 | NUR ---
FITNESS SUPERVISOR AT BEDSIDE
[2019-02-25 04:47] LABS: BASOPHIL % 0.3 % (0-2); PLATELET COUNT 213 x10^3mcL (130-400)
[2019-02-25 04:54] LABS: CARBON DIOXIDE 25.8 mmol/L (21-32); CHLORIDE SERUM 105 mmol/L (98-107); CREATININE SERUM 0.6 mg/dL (0.7-1.3); GLUCOSE SERUM 101 mg/dL (74-106); MAGNESIUM 2.6 mg/dL (1.8-2.4); PHOSPHOROUS 2.6 mg/dL (2.5-4.9); POTASSIUM SERUM 3.3 mmol/L (3.5-5.1); SODIUM SERUM 138 mmol/L (136-145)
--- NOTE | 2019-02-25 05:35 | NUR ---
PT HAD A SOFT BM. FULL BED BATH PROVIDED. GOWN AND LINENS CHANGED. PERICARE, ORAL, NIXON, AND TRACH CARE PROVIDED. HEELS OFFLOADED. COMFORT MEASURES IN PLACE
--- NOTE | 2019-02-25 05:40 | NUR ---
GRV=0. TUBE FEEDING TITRATED TO 30 ML/HR WITH 30 ML FWF Q4H
--- NOTE | 2019-02-25 07:07 | NUR ---
REPORT GIVEN TO SOLO BEGUM. ENDORSING ALL CARE
--- NOTE | 2019-02-25 09:38 | NUR ---
DR. RAYGOZA, DR. JAMES, SHORT PIECE HANDLER AND PRIMARY RN AT BEDSIDE FOR MORNING ROUNDS. PLAN OF CARE DISCUSSED. WILL CONT TO MONITOR.
--- NOTE | 2019-02-25 10:04 | NUR ---
GRV 0 ML. ABD SOFT/ROUND. BOWEL SOUNDS ACTIVE X4 QUADRANTS. TF INCREASED FROM 30 ML/HR TO 40 ML/HR WITH 30 ML FWF Q4H.
[2019-02-25 10:46] LABS: PLATELET COUNT 237 x10^3mcL (130-400)
[2019-02-25 10:47] LABS: RED CELL DISTRIBUTION WIDTH 17.4 % (11.5-14.5)
--- NOTE | 2019-02-25 12:20 | NUR ---
FULL LINEN CHANGE PERFORMED AT THIS TIME. 300 ML LOOSE, STOOL. OPTIFOAM PLACED TO SACRUM OF PT FOR NONBLANCHABLE REDNESS. PT TOLERATED WELL
--- NOTE | 2019-02-25 12:29 | NUR ---
AUTO BENCH MECHANIC AT BEDSIDE. PT REQUESTING SOLID FOODS. EDUCATION PROVIDED ON ASPIRATION. PT VERBALIZES UNDERSTANDING BUT WOULD STILL LIKE MESSAGE TO BE GIVEN TO MD. WILL UPDATE DR. PRICE ON PT'S REQUEST.
[2019-02-25 12:33] LABS: BAND NEUTROPHIL 30 % (0-10); BASOPHIL 0 % (0-2); MONOCYTE 6 % (0-7); SEGMENTED NEUTROPHILS 56 % (37-75)
[2019-02-25 12:35] LABS: PLATELET MORPHOLOGY PLATELETS NORMAL; ovalocyte/elliptocyte 1+; rbc morphology (normal/abnorm) ABNORMAL (NORMAL)
--- NOTE | 2019-02-25 14:01 | NUR ---
DR. ROTHMAN AT BEDSIDE TO ASSESS PT. UPDATED ON PT'S STATUS. DR. PRICE AT BEDSIDE. SPEAKING ABOUT PLAN OF CARE WITH PT. PT CONTINUES TO REFUSE EGD. PT WISHES TO RETURN TOO SNF. DR. ROTHMAN AND DR. PRICE ARE BOTH IN AGREEMENT AND STATE PT CAN BE DISCHARGED SOON BED IS AVAILABLE
--- NOTE | 2019-02-25 15:35 | NUR ---
PT PUT BACK ONTO VCV AC MODE SETTINGS. SAME PREVIOUS. RR 42. LIDA RT MADE AWARE. PT TOLERATED 1.5 HOURS CPAP.
--- NOTE | 2019-02-25 15:42 | NUR ---
Initial Nutrition Assessment- Arvind Hannah Dx: Pneumonia PMHx: Chronic respiratory failure s/p tracheostomy, COPD, Hypertension, Schizophrenia PSHx: Tracheostomy, PEG tube placement Labs: Na 138, K 3.3L, BUN 30.0H, Creat 0.6L, Ca 8.0L, Hgb 8.7L, Hct 25L Meds: Ferrous Sulfate Liquid, KCL 10% 20MEQ/15ml liquid, Lactinex, Protonix packet, Sodium Chloride 0.9%, Zofran Diet: Tube feeding Jevity 1.2 Gastronomy tube. Initial rate 20ml/hr, goal 55ml/hr. Freq. advancement Q12HR, free H2O flush 30ml Q 4H, hold feeding if residuals reach 250ml PO Intake: NPO, Jevity TF at 30ml/hr with 30ml FWF Q4H, tolerating well Ht:170.18cm 67in Wt: 68kg 149# BMI: 23.5kg/m2 Normal Bed scale: 148# IBW:148# %IBW: 100 UBW: 141# Age: 73 Food Allergies: NKA Skin: Ecchymosis to BUE. Wound to right buttock, dressing CDI and wound to LLQ ADAM. Small skin tear to LUE with t covering. Lon: 16 Edema: Trace to LUE, 1+ edema to RUE GI: Last BM 1 on 02/25/19 Pt Visit: Pt was alert and writing a lot about how hungry and thirsty he was. Pt was only using a paper and pen form communication. Pt felt that he was losing weight because he wasn't eating. Spoke with RN and stated that pt was getting 40ml/hr and had no residuals. Per H&P: The patient had approximately 7 episodes of "coffee-colored" emesis. The patient has not had any dark stools or bright red blood in the stools. He denies any abdominal pain at this time. He does note chills, but denies any fever, chest pain, shortness of breath, dysuria, hematuria, pyuria, numbness or tingling. Problem with: N: yes ( per pt a few days ago) V: yes ( per pt a few days ago) D: None C: None Problems with: Chewing: no reported problems pt is on TF Swallowing: issues due to aspiration Current appetite: pt statess wants to eat by mouth because feels hungry Recent wt change: None %wt change: None Vitamin/Supplement use: Was taking Vit. B and E shots 1x/month Special diet at home: None (Regular) Physical activity: Was doing some physical therapy Education: Not applicable at this time Estimated Nutritional Needs Based on actual body weight 68kg Energy: 2040-2380kcal/d (RMR X) (30-35kcal/kg) (due to COPD) Protein: 88-102 g/d (g/kg)- (1.3-1.5gm/kg) (COPD and wound) Fluid: 2040ml/d (30ml per kg) Nutrition Diagnosis Inadequate intake of enteral nutrition r/t increase nutrient needs aeb wound healing and TF not meeting estimated nutritional needs. Intervention 1. Increase Jevity 1.2 to 70cc/hr x 24hours to provide 1680cc/ 2016kcal/ 87g protein/ 1259cc free water qd. 2. Increase H2O flush to 125cc q4 hrs to provide 750cc qd for hydration. Monitor/Evaluate Goal: Pt's tolerance of TF intervention Monitor: Need for PO diet, Labs, GI function, TF tolerance HR F/U 02/27-03/01
--- NOTE | 2019-02-25 15:57 | NUR ---
GRV 0 ML. JEVITY TF INCREASED FROM 40 ML/HR TO 50 ML/HR WITH 30 ML FWF Q4H
--- NOTE | 2019-02-25 15:58 | NUR ---
GRV 0 ML. ABD SOFT, ROUND. TF INCREASED FROM 30 ML/HR TO 40 ML/HR. WILL CONTINUE TO MONITOR
[2019-02-25 16:20] LABS: PLATELET COUNT 215 x10^3mcL (130-400)
[2019-02-25 16:21] LABS: BASOPHIL % 0 % (0-2); RED CELL DISTRIBUTION WIDTH 17.5 % (11.5-14.5)
--- NOTE | 2019-02-25 16:24 | NUR ---
SPOKE WITH DR. PRICE REGARDING SERIAL CBC DRAWS Q6H AND URINE CULTURE. PER DR. PRICE URINE CULTURE AND CBC WILL BE CANCELLED PT IS TO BE DISCHARGED.
--- NOTE | 2019-02-25 16:29 | NUR ---
spoke with dr. mendoza regarding recommendations.
--- NOTE | 2019-02-25 16:57 | NUR ---
ONE SMALL, LOOSE BM CHANGED AT THIS TIME. PT ABLE TO ASSIST WITH POSITIONING.
--- NOTE | 2019-02-25 19:30 | NUR ---
REC'D REPORT FROM KRISTY BEGUM TO ASSUME CARE. PT TRACH'D WITH NO SEDATION AT THIS TIME. PT IS AWAKE, ALERT, ABLE TO FOLLOW COMMANDS. ABLE TO COMMUNICATE WITH WRITING BOARD, GESTURES, AND MOUTHING WORDS. PERRLA NOTED. TRACH TO VENT: AC MODE RATE 14, TV 500, PEEP 5, FIO2 30%. CHEST RISE EQUAL AND SYMMETRICAL. LUNG SOUNDS RHONCHI BUL, DIMNISHED BASES. NO JVD NOTED. TRACHEA MIDLINE. R SUBCLAVIAN CVC INTACT, PORTS PATENT, DSG CDI. SINGING WAITER OR WAITRESS IN PLACE SHOWING NSR WITH HR 74. PEG TUBE INTACT AND SECURED. JEVITY @ 40 ML/HR, FWF 30 ML Q4H. GRV=5ML, REPLACED. ABD DISTENDED, SOFT TO TOUCH. BOWEL SOUNDS ACTIVE. F/C INTACT AND PATENT, DRAINIG VIA GRAVITY YELLOW URINE. PULSES PALPABLE X4. CAP REFILL < [address] TURNED AND REPOSTIIONED Q2H FOR PRESSURE RELIEF. ISOGEL MATTRESS IN PLACE. ALL NEEDS MET AT THIS TIME. WILL CONTINUE TO MONITOR.
--- NOTE | 2019-02-25 21:30 | NUR ---
PT NOTED WITH SMALL AMT OF LOOSE BM, GOOD DEBBI CARE PROVIDED. CHUX CHANGED AND REPOSITIONED.
[2019-02-26] VITALS (15 sets, daily range): BP systolic 111–134; BP diastolic 51–85
--- NOTE | 2019-02-26 01:30 | NUR ---
PT SEEN SLEEPING COMFORTABLY. NO ACUTE DISTRESS NOTED. NO SOB NOTED, RESPS E/U.
--- NOTE | 2019-02-26 04:30 | NUR ---
TOTAL BED BATH PROVIDED. MODERATE SIZED LOOSE BM NOTED. GOOD DEBBI CARE PROVIDED. F/C CARE PROVIDED. LINENS CHANGED. REPOSITIONED TO COMFORT.
[2019-02-26 05:04] LABS: BASOPHIL % 0.1 % (0-2); PLATELET COUNT 233 x10^3mcL (130-400); RED CELL DISTRIBUTION WIDTH 17.8 % (11.5-14.5)
[2019-02-26 05:18] LABS: CALCIUM 7.8 mg/dL (8.5-10.1); CARBON DIOXIDE 25.4 mmol/L (21-32); CHLORIDE SERUM 104 mmol/L (98-107); CREATININE SERUM 0.5 mg/dL (0.7-1.3); GLUCOSE SERUM 116 mg/dL (74-106); MAGNESIUM 2.2 mg/dL (1.8-2.4); POTASSIUM SERUM 4.1 mmol/L (3.5-5.1); SODIUM SERUM 137 mmol/L (136-145)
--- NOTE | 2019-02-26 05:57 | NUR ---
R SUBCLAVIAN CVC DSG CHANGED.
--- NOTE | 2019-02-26 06:03 | NUR ---
DR PRICE AT BEDSIDE, UPDATED ON STATUS, UPDATED ON ABNORMAL LABS.
--- NOTE | 2019-02-26 07:00 | NUR ---
RECEIVED REPORT FROM NOC SHIFT RN HAROON, ALL QUESTIONS AND CONCERNS ADDRESSED AT THIS TIME, WILL ASSUME ALL CARE.
--- NOTE | 2019-02-26 07:22 | NUR ---
RECEIVED PATIENT AWAKE AND ALERT LAYING IN BED. PATIENT FOLLOWS COMMANDS, GCS 15, PERRLA NOTED. PATIENT TRACH TO VENT, SHILEY 8.0 TRACH, VENT SETTINGS: VT 500, PEEP 5, FI02 30%, RATE 14. WHEEZING NOTED IN BILATERAL LUNGS AT THIS TIME, MINIMAL YELLOW SPUTUM NOTED AT TRACH SITE. PATIENT HAS PEG TUBE NOTED RECEIVING JEVITY 1.2 AT GOAL RATE 55 ML/HR WITH A FWF 30 Q4H, NO RESIDUALS NOTED AT THIS TIME. PATIENT ABD APPEARS ROUND AND DISTENDED WITH HYPOACTIVE BOWEL SOUNDS. PATIENT HAS NIXON CATHETER IN PLACE DRAINING TO GRAVITY YELLOW URINE, NO SEDIMENT OR BLOOD NOTED. PATIENT SKIN IS WARM, DRY AND PALE. PATIENT HAS OPEN SKIN TEAR NOTED TO RIGHT BUTTOCK CDI OPTIFOAM DRESSING IN PLACE, LLQ ABD ABRASION PROTECTIVE SIGNAL SUPERINTENDENT, LEFT NECK ABRASION NOTED ADAM. PT IS REPOSITIONED Q2H AND PRN COMFORT. MANAGER PROFESSIONAL DEVELOPMENT NOTED SHOWING NSR. PATIENT DENIES ANY PAIN OR DISTRESS AND DENIES HAVING ANY CURRENT NEEDS. WILL CONTINUE TO MONITOR PT.
--- NOTE | 2019-02-26 09:11 | NUR ---
PT RELAXING IN BED AND DENIES ANY NEEDS. WILL CONTINUE TO MONITOR PT.
--- NOTE | 2019-02-26 11:40 | NUR ---
PT TRACH DRESSING SATURATED IN MUCOUS, CHANGED AND CLEANSED AT THIS TIME.
--- NOTE | 2019-02-26 11:48 | NUR ---
AT BEDSIDE. UPDATES PROVIDED. PER CONTINUE TO CPAP PATIENT.
[2019-02-26] MEDS ORDERED: ZYPREXA15 M1 PEG (12:10)
--- NOTE | 2019-02-26 12:42 | NUR ---
CALLED AT THIS TIME, PER PLACE ORDER FOR NO ASPIRIN, PLAVIX, OR ANY ANTICOAGULANTS AT THIS TIME DUE TO GI BLEED.
--- NOTE | 2019-02-26 15:15 | NUR ---
RT AT BEDSIDE TO PLACE PATIENT ON CPAP 14/04.
--- NOTE | 2019-02-26 15:19 | NUR ---
PT RELAXING IN BED, OCCASIONALLY WRITING ON CLIP BOARD AND DISCUSSING PLAN OF CARE. ALL NEEDS MET. WILL CONTINUE TO MONITOR PT.
[2019-02-26] MEDS ORDERED: FERL GT (15:29)
--- NOTE | 2019-02-26 16:51 | NUR ---
PATIENT WAS ABLE TO CPAP ON 09/04 FOR 1 HOUR THIS AFTERNOON. PLACED PATIENT BACK ON PRIOR SETTINGS DUE TO TACHYPNEA AND AGITATION. WILL ATTEMPT AGAIN TOMORROW.
--- NOTE | 2019-02-26 17:37 | NUR ---
ALL DISCHARGE PAPERWORK PREPARED, DISCHARGE WOUND PICTURES TAKEN AND PLACED IN CHART, FULL BED BATH PROVIDED WITH CHG WIPES AND NIXON CARE. ALL LINEN CHANGED AT THIS TIME. PT DENIES ANY NEEDS. SUBCLAVIAN IV CATH DC'D AT THIS TIME CATH IN TACT.
--- NOTE | 2019-02-26 18:06 | NUR ---
REPORT GIVEN TO KEL LEMA AT [facility]. ALL QUESTIONS AND CONCERNS ADDRESSED AT THIS TIME.
--- NOTE | 2019-02-26 18:15 | NUR ---
PT HAD SMALL LOOSE, GREEN COLORED BM. PT CLEANSED AND PROVIDED NEW LINEN.
--- NOTE | 2019-02-26 19:00 | NUR ---
CCT AT BEDSIDE, REPORT GIVEN TO TOMY RT. PT TRANSFER WITHOUT INCIDENT AT THIS TIME.
== END 2019-02-26 19:00 | DRG 720 ==
LOC: ED 10:15 → IC 14:02
PROVIDERS: Emergency Medicine; ADMIT Internal Medicine
PROC: 5A1945Z Respiratory Ventilation, 24-96 Consecutive Hours (ICD-10-PCS; principal; 2019-02-23)
PROC: 30233N1 Transfusion of Nonautologous Red Blood Cells into Peripheral Vein, Percutaneous Approach (ICD-10-PCS; 2019-02-24)
DX: A41.9 Sepsis, unspecified organism (principal); N17.0 Acute kidney failure with tubular necrosis; J69.0 Pneumonitis due to inhalation of food and vomit; J18.9 Pneumonia, unspecified organism; K56.600 Partial intestinal obstruction, unspecified as to cause; Z99.11 Dependence on respirator [ventilator] status; J96.10 Chronic respiratory failure, unspecified whether with hypoxia or hypercapnia; I95.9 Hypotension, unspecified; Z93.0 Tracheostomy status; K92.0 Hematemesis; J44.9 Chronic obstructive pulmonary disease, unspecified; E83.51 Hypocalcemia; F20.9 Schizophrenia, unspecified; Z93.1 Gastrostomy status; R65.20 Severe sepsis without septic shock; I10 Essential (primary) hypertension; I25.2 Old myocardial infarction; Z68.25 Body mass index [BMI] 25.0-25.9, adult; Z79.82 Long term (current) use of aspirin; Z79.02 Long term (current) use of antithrombotics/antiplatelets
CPT/HCPCS: A4628; C9113; J1956; J2543; J7030; J7050; J7620; J7626; J8597; P9016; Q0092; Q0163; Q9967

== ENCOUNTER 2019-07-21 09:35 | Inpatient (IN) | payer OTHER, MEDICARE ==
[~2019-07-21] VITALS: Ht 167.6 cm; Wt 78.5 kg
[~2019-07-21 09:35] MED LIST changes: +AMLODIPINE BESYL5 M2 GT; +ASPIRIN ADULT L81 M5 GT; +COLACE100 MG GT; +DULCOLAX10 M1 PR; +FERL GT; +MIRTAZAPINE15 M2 GT; +MOM GT; +MUCINEX600 MG GT; +PLA75 GT; +TYLENOL325 M1 GT; +ZOF4 GT; +ZYPREXA15 M1 PEG
[2019-07-21 09:47] VITALS: Ht 167.6 cm; Wt 78.5 kg
--- NOTE | 2019-07-21 09:53 | NUR ---
PT ARRIVES ALERT AND ORIENTED WITH ORIGINAL C/O MIDLINE ABD PAIN. PT ARRIVES WITH TRACH IN PLACE BUT ABLE TO SHAKE HEAD YES OR NO TO QUESTIONS. DENIES PAIN UPON ARRIVAL. ABD IS ROUND AND FIRM TO TOUCH BUT PT DENIES TENDERNESS. PT ARRIVES IN DIAPER WHICH IS CLEAN AT THIS TIME. LUNG SOUNDS ARE DIMINISHED BILATERAL. SKIN IS CLEAN DRY AND INTACT. VSS UPON ARRIVAL AND 02 SAT 95% AT THIS TIME. AWAITING MD HERNANDEZ
--- NOTE | 2019-07-21 10:05 | NUR ---
PER EMS PT BROUGHT IN FOR COFFEE GROUND EMESIS UNKNONW AMOUNT STARTED THIS AM WITH SOFT STOOLS X4 SINCE 11 PM LAST NIGHT. PT DENIES NAUSEA UPON ARRIVAL
--- NOTE | 2019-07-21 10:06 | NUR ---
PT ARRIVES WITH IV SALINE WITH 20MEQ POTASSIUM HL AT THIS TIME
--- NOTE | 2019-07-21 10:07 | NUR ---
PT ARRIVES WITH SSTAFF R.T. FROM RECEIVING FACILITY WITH PORTABLE VENT IN PLACE. AWAIITING R.T. TO ARRIVE TO SWITCH TO HOSPITAL VENT
--- NOTE | 2019-07-21 10:10 | NUR ---
DR BUTLER AT BEDSIDE FOR EVAL
[2019-07-21] MEDS ORDERED: MIRALAX17 GM/Dose TF (10:18)
[2019-07-21] MEDS ORDERED: PEPCID20 MG TF (10:18)
[2019-07-21] MEDS ORDERED: MULTIVITAMIN1 SGL TF (10:19)
[2019-07-21] MEDS ORDERED: REG50I TF (10:19)
[2019-07-21] MEDS ORDERED: CONSTULOSE10 GM/151 TF (10:20)
[2019-07-21] MEDS ORDERED: CARVEDILOL12.5 M1 TF (10:20)
--- NOTE | 2019-07-21 10:57 | NUR ---
pt left to ct with r.t.
[2019-07-21 11:06] LABS: BASOPHIL % 0.1 % (0-2); PLATELET COUNT 265 x10^3mcL (130-400); RED CELL DISTRIBUTION WIDTH 13.5 % (11.5-14.5)
--- NOTE | 2019-07-21 11:08 | NUR ---
PT RETURNED FROM CT VIA GURNEY WITHOUT INCIDENT FOLLOWED BY Pedro Pablo
--- NOTE | 2019-07-21 11:18 | NUR ---
XRAY AT BEDSIDE FOR EVAL
[2019-07-21 11:20] LABS: CALCIUM 8.6 mg/dL (8.5-10.1); CARBON DIOXIDE 38.9 mmol/L (21-32); CHLORIDE SERUM 94 mmol/L (98-107); CREATININE SERUM 0.7 mg/dL (0.7-1.3); GLUCOSE SERUM 139 mg/dL (74-106); POTASSIUM SERUM 3.9 mmol/L (3.5-5.1); SODIUM SERUM 136 mmol/L (136-145)
[2019-07-21 11:25] LABS: ALKALINE PHOSPHATASE 142 U/L (46-116); ALT/SGPT 36 U/L (16-63); AST/SGOT 22 U/L (15-37); BILIRUBIN TOTAL 0.3 mg/dL (0.20-1.00); TOTAL PROTEIN, SERUM 7.1 g/dL (6.4-8.2)
[2019-07-21 11:28] LABS: ALBUMIN 2.4 g/dL (3.4-5.0)
--- NOTE | 2019-07-21 12:01 | NUR ---
PT SMELLS OF BM. CHANGED PT WHO HAD WATERY MEDIUM AMOUNT OF BM. VSS UPON CHANGING AN DNO CHANGE IN R. STATUS
--- NOTE | 2019-07-21 12:28 | NUR ---
CONNECTED TO LIS WITH GTUBE. PT TOLERATING WELL AND GT DRAINING GREENISH FLUID
--- NOTE | 2019-07-21 12:34 | NUR ---
PT TO BE ADMITTED. PT AWARE AND BEING PREPPED
[2019-07-21 13:05] VITALS: BP 125/55; BP 129/56
--- NOTE | 2019-07-21 14:13 | NUR ---
ASSUMED CARE OF PATIENT. ROBOTIC WELDER TOMY PAGED FOR ORDER OF TYLENOL AND BENADRYL FOR BLOOD TRANSFUSION. PATIENT GT ON INTERMITTENT SUCTION. REMAINING ON VENTILATOR. WILL CONTINUE TO MONITOR.
[2019-07-21 14:15] VITALS: BP 124/57
--- NOTE | 2019-07-21 14:37 | NUR ---
RECEIVED PT FROM ER, PT ADMIT FOR GI BLEED, ANEMIA, ALIUS, PT IS ALERT BUT NONVERBAL, BUT ABLE TO ANSWER SOME QUESTIONS BY GESTURE AND LIPS TALKS, THERE IS TRACH AT NECK, THERE IS ERYTHEMA NEAR THE TRACH AREA. PT IS ON VENTILATOR, LUNG SOUND DIM, CURRENTLY VENT SETTING. TIDAL 500, RATE 16, O2 32%, PEEP 5, PT DENY ANY SOB AT THIS MOMENT, PO2 94%, PT IS ON TELE 22, NSR WITH ELEVATE T WAVE, BOWEL SOUND PRESENT ALL 4 QUADRANTS, DISTENTED. G TUBE IS IN PLACE, DIARRHEA NOTED. PEDAL PULSE PRESENT BOTH FEET, NO EDEMA, PT IS COMPLETE BED REST. PT ABLE TO MOVE TOES BUT UNABLE TO BEND THE KNEE. IV AT LEFT FA. NO LEAKING, NO INFILTRATION. ALL ADLS ASSIST, ALL NEED MET, CALL LIGHT IN REACH, WILL CONTINUE TO MONITOR.
--- NOTE | 2019-07-21 14:44 | NUR ---
PATIENT NOTIFIED OF NEED FOR BLOOD TRANSFUSION. PATIENT MOUTHING "NO." WHEN ASKED TO WRITE ANSWER, PATIENT WRITES "NO BLOOD TRANSFUSION," WHEN PROMPTED FOR REASON, "I DON'T NEED IT." PATIENT NOTIFIED THAT BLOOD LEVELS ARE LOW, HOWEVER CONTINUES TO MOUTH NO. REFUSAL TO PERMIT BLOOD TRANSFUSION SIGNED.
[2019-07-21 15:00] VITALS: BP 124/57
--- NOTE | 2019-07-21 15:35 | NUR ---
NEW 20G IV PALCED ON RFA. LFA IV WAS NOT PATENT.
--- NOTE | 2019-07-21 15:40 | NUR ---
MANUELITO HUITRON NOTIFIED OF PATIENT REFUSAL FOR BLOOD TRANSFUSION
--- NOTE | 2019-07-21 16:23 | NUR ---
ATTEMPTED TO GET CONSENT FOR EXPLORATORY LAPAROTOMY FOR SBO TOMORROW. PATIENT MOUTHING "NO." WROTE "NO SURGERY FOR BOWEL OBSTRUCTION." ALSO EXPLAINED BARIUM ENEMA PROCEDURE AND PATIENT WAS AGREEABLE TO IT. WHEN ASKED WHAT THE PATIENTS GOAL OF BEING IN THE HOSPITAL WAS, PATIENT STATES HE WANTED TO GO BACK TO HIS PRIOR FACILITY. MANUELITO HUITRON NOTIFIED.
[2019-07-21 17:10] VITALS: BP 124/57
[2019-07-21 17:35] VITALS: BP 126/50
--- NOTE | 2019-07-21 17:51 | NUR ---
GTUBE CLAMPED PER ORDERS. NOTIFIED PATIENT TO NOTIFY RN IF HE EXPERIENCES NAUSEA OR VOMITING.
[2019-07-21 18:11] LABS: IRON 18 ug/dL (65-170); TOTAL IRON BINDING CAPACITY 183 ug/dL (250-450)
--- NOTE | 2019-07-21 18:22 | NUR ---
FLEET ENEMA ADMINISTERED.
--- NOTE | 2019-07-21 18:52 | NUR ---
PATIENT RESTING IN BED ON VENTILATOR. NO APPARENT DISTRESS NOTED. NO COMPLAINTS OF ANY PAIN OR DISCOMFORT. IV TO RFA PATENT AND INUFSING D5 NS AT 80ML/HR. SUCTION TO G TUBE REMAINS CLAMPED AT THIS TIME DUE TO NO COMPLAINTS OF NAUSEA. STOOL SAMPLE OBTAINED FOR STOOL OB AND C.DIFF. WILL ENDORSE CARE TO ONCOMING RN.
--- NOTE | 2019-07-21 19:30 | NUR ---
PT IS ALERT BUT UNVERBAL. ABLE TO WRITE DOWN NEEDS. FOLLOWS COMMANDS. ON TELE #22, NSR WITH ELEVATED T. DENIES ANY CHEST PAIN OR PRESSURE. PULSES ARE PRESENT. NO EDEMA NOTED. LUNGS CLEAR IN ALL FEILDS. PT HAS A MIDLINE TRACH WITH VENTILATOR. TIDAL WAVE 500 ML, RATE 16 BPM, PEEP 5 CMH2O, O2 32%, PEAK FLOW 40 LPM. NO SIGN OF RESP DISTRESS. EQUAL CHEST RISE AND FALL. BOWEL SOUNDS PRESENT. ABD IS DISTENDED AND FIRM. GT NOTED ON LLQ. INTACT AND CLEAN. CLAMPED AT THIS TIME PER MD ORDERS. ERYTHEMIA NOTED ON NECK AREA. PT DENIES PAIN OR DISCOMFORT TO THAT AREA. SKIN IS INTACT. DENIES ANY PAIN. IV ON RFA INTACT AND PATENT. NO SIGN OF INFILTRATION OR IRRIATION NOTED. BED IS AT LOWEST SETTING. CALL LIGHT WITHIN REACH. BED ALARM ON FOR PT SAFETY. WILL CONTINUE TO MONTIOR.
[2019-07-21 20:59] VITALS: BP 130/52
[2019-07-22] VITALS (12 sets, daily range): BP systolic 104–135; BP diastolic 41–62
--- NOTE | 2019-07-22 01:10 | NUR ---
PT IS RESTING IN BED WATCHING TV. DENIES ANY PAIN AT THIS TIME. COMFORTABLE IN BED. TRACH IN PLACE. BED IS AT LOWEST SETTING. CALL LIGHT WITHIN REACH. WILL CONTINUE TO MONTIOR.
[2019-07-22 06:09] LABS: BASOPHIL % 0.4 % (0-2); PLATELET COUNT 235 x10^3mcL (130-400); RED CELL DISTRIBUTION WIDTH 13.3 % (11.5-14.5)
--- NOTE | 2019-07-22 06:13 | NUR ---
PT IS RESTING IN BED WITH BOTH EYES CLOSED. BREATHING EVEN AND UNLABORED. NO SIGN OF DISTRESS NOTED. ON VENT. TRACH IS MIDLINE. NO ACUTE EVENT DURING BANK MESSENGER. BED IS AT LOWEST SETTING. CALL LIGHT WITHIN REACH. WILL ENDORSE TO AM NURSE.
[2019-07-22 06:30] LABS: CALCIUM 8.4 mg/dL (8.5-10.1); CARBON DIOXIDE 34.2 mmol/L (21-32); CHLORIDE SERUM 99 mmol/L (98-107); CREATININE SERUM 0.7 mg/dL (0.7-1.3); GLUCOSE SERUM 104 mg/dL (74-106); POTASSIUM SERUM 3.6 mmol/L (3.5-5.1); SODIUM SERUM 139 mmol/L (136-145)
--- NOTE | 2019-07-22 06:44 | NUR ---
SUCTION WAS PROVIDED. SECRETIONS NOTED ON VENT TUBING AND UNABLE TO SUCTION. RESP WAS NOTIFIED TO REPLACE TUBING. WILL COME UP TO SEE PT.
--- NOTE | 2019-07-22 08:14 | NUR ---
AT 0715 - RECEIVED PATIENT FROM NIGHT NURSE. AWAKE, ALERT AND APPEARS ORIENTED. TRACHEOSTOMY TO VENT AT VT 500. PEEP 5, RATE 16, FIO2 32%. G-TUBE CLAMPED AND NPO FOR BARIUM ENEMA. IV INFUSING D5 NS AT 80 ML/HR. AT 0800 - SEEN BY DR ROTHMAN. PATIENT WATCHING TV.
[2019-07-22 08:40] LABS: rbc morphology (normal/abnorm) NORMAL (NORMAL)
[2019-07-22 08:51] LABS: BASOPHIL % 0.1 % (0-2); PLATELET COUNT 259 x10^3mcL (130-400); RED CELL DISTRIBUTION WIDTH 13.3 % (11.5-14.5)
--- NOTE | 2019-07-22 11:02 | NUR ---
AT 1015 - PATIENT TURNED AND RPOSITIONED. HAS HAD VOID - INCONTINENT OF MALODEROUS URINE. SPOKE WITH RADIOLOGY. PLAN FOR BARIUM ENEMA AT 1300.
--- NOTE | 2019-07-22 13:08 | NUR ---
AT 1145 - RECEIVED CALL FROM LAB WITH POSITIVE C-DIFF OF STOOL. WILL PLACE CALL FOR ADDING MACHINE SERVICER TO NITIFY. PATIENT PLACED ON CONTACT ISOLATION. AT 1230 - RECEIVED NEW ORDERS FOR IV VANCOMYCIN AND IV FLAGYL WELL ID CONSULT WITH DR RUANO.
--- NOTE | 2019-07-22 13:24 | NUR ---
PATIENT TAKEN TO RADIOLOGY FOR BARIUM ENEMA.
--- NOTE | 2019-07-22 14:56 | NUR ---
AT 1430 - PATIENT BACK IN ROOM FOLLOWING BARIUM ENEMA. HAS HAD WATERAY YELLOW STOOL. PATIENT WASHED AND REPOSITONED. AT 1440 - COMMENCED IV FLAGYL. FIRST DOSE IN PROGRESS.
--- NOTE | 2019-07-22 19:03 | NUR ---
PATIENT AWAKE, ALERT AND ORIENTED. VSS. AFEBRILE. NO C/O PAIN. PRODUCTIVE COUGH. SUCTIONED TRACH PRN. IV INFUSING D5 NS AT 80 ML/HR. HAS HAD 2 YELLOW LIQUID BM THIS AFTERNOON. PASSING GAS. PEG TUBE REMAINS CLAMPED - USED 1 X FOR G-TUBE VANCOMYCIN DOSE. PATIENT TURNED AND REPOSTIONED Q 2H. CONTACT ISOLATION MAINTAINED. WILL ENDORSE CARE TO NIGHT NURSE.
--- NOTE | 2019-07-22 19:55 | NUR ---
PT RECIEVED FROM DAY NURSE. PT RESTING IN BED COMFORTABLY AT THIS TIME. DENIES PAIN AT THIS TIME. A/OX4, NON VERBAL USES PEN AND PAPER TO MAKE NEEDS KNOWN. TELE 22, NSR. DENIES CP, NV, DIZZINESS, AND PALPATAIONS. PALPABLE PULSES NO EDEMA NOTED AT THIS TIME. PT TRACH AND VENED. VT 500, FI02 32%, PEEP 5, RR 16. ABD SOFT AND ROUND, G TUBE CLAMPED AT THIS TIME. GENERALIZED WEAKNESS, PT ON BED REST. Q2 HOUR REPOSITION. IV TO RFA INTACT AND INFUSING. BED AT LOWEST POSITON. CALL LIGHT WITHIN REACH. WILL CONTINUE TO MONITOR.
--- NOTE | 2019-07-22 22:00 | NUR ---
PT TEMP 100.8. MEDICATED WITH PRN TYLENOL. WILL MONITOR.
--- NOTE | 2019-07-22 23:00 | NUR ---
PT TEMP DECRESED TO 99.3
[2019-07-23] VITALS (11 sets, daily range): BP systolic 111–137; BP diastolic 47–72
--- NOTE | 2019-07-23 | NUR ---
PT RESTING IN BED AT THIS TIME. NO S/S OF PAIN OR DISTRESS NOTED. BED AT LOWEST POSITION. CALL LIGHT WITHIN REACH. WILL CONTINUE TO MONITOR.
--- NOTE | 2019-07-23 06:55 | NUR ---
PT RESTING IN BED COMFORTABLY AT THIS TIME. PT HAD LARGE BOWEL MOVEMENT. PT CLEANED AND LINENS CHANGED. PT IV LEAKING AT THIS TIME. PT REFUSED IV INSERTION AFTER A FEW TRIES. AM FLAGYL AND REGLAN NOT GIVEN. BED AT LOWEST POSITION. CALL LIGHT WITHIN REACH. WILL ENDORSE TO DAY NURSE.
--- NOTE | 2019-07-23 07:10 | NUR ---
RECEIVED PT FROM SUPERVISOR ALUM PLANT NURSE. PT RESTING IN BED, AOX4, RESP E/U ON TRACH AND VENT. DENIES SOB OR NAUSEA AT THIS TIME. ON TELE 22 SHOWING NSR, HR: 77. PT W/ NO IV ACCESS AT THIS TIME. BED IN LOWEST POSITION AND CALL LIGHT WITHIN REACH. WILL CONTINUE TO MONITOR.
[2019-07-23 07:18] LABS: PLATELET COUNT 235 x10^3mcL (130-400); RED CELL DISTRIBUTION WIDTH 13.5 % (11.5-14.5)
[2019-07-23 07:20] LABS: CALCIUM 8.4 mg/dL (8.5-10.1); CARBON DIOXIDE 30.9 mmol/L (21-32); CHLORIDE SERUM 104 mmol/L (98-107); CREATININE SERUM 0.7 mg/dL (0.7-1.3); GLUCOSE SERUM 87 mg/dL (74-106); POTASSIUM SERUM 3.2 mmol/L (3.5-5.1); SODIUM SERUM 143 mmol/L (136-145)
--- NOTE | 2019-07-23 09:18 | NUR ---
LAB REPORTED HGB: 6.9. PT REFUSING BLOOD TRANSFUSION AND IV ACCESS. PROCUREMENT COST COORDINATOR ISABEL MADE AWARE. NO NEW ORDERS AT THIS TIME.
--- NOTE | 2019-07-23 11:26 | NUR ---
PT REFUSED TO HAVE PICC LINE INSERTION, REMAINS WITHOUT IV ACCESS. MANUELITO HALL MADE AWARE. PT SIGNED FORMED FOR REFUSAL TO TREATMENT VIA IV ACCESS.
[2019-07-23 13:03] LABS: ATYPICAL LYMPH 0 %; BAND NEUTROPHIL 0 % (0-10); BASOPHIL 0 % (0-2); MONOCYTE 7 % (0-7); SEGMENTED NEUTROPHILS 73 % (37-75)
[2019-07-23 13:09] LABS: rbc morphology (normal/abnorm) ABNORMAL (NORMAL)
[2019-07-23 13:35] LABS: rbc morphology (normal/abnorm) ABNORMAL (NORMAL)
--- NOTE | 2019-07-23 13:50 | NUR ---
Initial Nutrition Assessment: 246T/B [facility] [place] HR Dx: GI Bleed, anemia, SOB PMHx: Chronic respiratory failure s/p tracheostomy, COPD, Hypertension, Schizophrenia PSHx: Tracheostomy, PEG tube placement Labs: K 3.2L, BUN 19H, CA 8.4L, HGB 7.2L, ALB 2.4L Meds: Colace, coreg, D 5%, Dulcolax, flagyl, reglan, remeron, theragran Diet: NPO (procedure) PO Intake: NPO Ht: 167.64 cm (66") Wt: 78 kg (172#) BMI: 27.9 kg/m2 Bed scale: 172# IBW: 142# (65 kg) %IBW: 121 UBW: 172# Age: 74/M Food Allergies: NKFA Skin: trach in place Lon: 14 Edema: none GI: G tube clamped Last BM: 07/21 Trigger: admitted w/ risk diagnosis, TF, TPN Per H&P, Pt is a 74-year old male who is well known to me from [facility] patient had episodes of vomiting yesterday associated with distended abdomen. In the ER patients stool guiac positive and CT abd shows questionable partial SBO. RDN Visit (07/23): Patient was alert and oriented but was unable to speak d/t trachestomy, however pt could communicated through gestures. Per progress note (07/23), Patient seen and examined. Awake, alert sputum noted with foul smell. Patient abdomen remains round and distended, patient refused to have blood transfusion done yesterday. Pt is C. diff positive. Problem with: N/V/D/C: none Problems with: Chewing/Swallowing: yes, tracheostomy Current appetite: good Recent wt change: none %wt change: n/a Vitamin/Supplement use: none Special diet at home: unable to access Physical activity: unable to access Nutrition education given: not appropriate at this time Food-drug interactions: Colace- high fiber w/0858-1895 ml fluids Education given: none Estimated Nutritional Needs Based on current body weight 78 kg Energy: 5149-0557 kcal/d (25-30 kcal/kg) Protein: 78-94 g/d (1.0-1.2 g/kg) - preserve LBM Fluid: 7901-0903 ml/d (1 ml/kcal) or per doctor Nutrition Diagnosis 1. Inadequate oral/enteral intake related to partial SBO, procedures as evidenced by NPO diet order. Intervention 1. Recommend Jevity 1.2 @ 10 ml/hr, goal 60 ml/hr, advance by 10 ml Q4H. FWF 100 ml Q4H. Goal rate will provide 1730 kcal and 80g protein and 1160 ml water. This will meet >75% estimated calorie and protein needs of the patient. Discussed recommendations with GASOLINE TRACTOR OPERATOR Cherise. Monitor/Evaluate Goal: PO intake at least 75% of estimated needs Monitor: PO intake, Labs, GI function F/U in 2-3 days as high risk 07/25-
--- NOTE | 2019-07-23 18:24 | NUR ---
PT C/O OF SOB. HOB ELEVATED, SUCTION DONE, TRACH ADJUSTED BY RT. PT REPORTED INCREASED COMFORT AND IMPROVED BREATHING. PT AOX4, DENIES ABD PAIN OR NAUSEA. G-TUBE CLAMPED, PT W/O IV ACCESS. [facility] BED IN LOWEST POSITION AND CALL LIGHT WITHIN REACH. WILL ENDORSE TO ONCOMING NURSE.
--- NOTE | 2019-07-23 19:38 | NUR ---
SPOKE WITH DORINDA FROM [facility] [place] REGARDING PT REQUIRING RESPIRATORY THERAPIST FOR TRANSPORT. PER DORINDA, RT WILL BE AVAILABLE AND ARRIVING IN APPROX 1.5 HOURS. PT UPDATED.
== END 2019-07-23 21:42 | DRG 248 ==
LOC: ED 09:35 → DU 12:42
PROVIDERS: Emergency Medicine; Internal Medicine Gastroenterology; ADMIT General Practice
PROC: 5A1945Z Respiratory Ventilation, 24-96 Consecutive Hours (ICD-10-PCS; principal; 2019-07-21)
DX: A04.72 Enterocolitis due to Clostridium difficile, not specified as recurrent (principal); J96.20 Acute and chronic respiratory failure, unspecified whether with hypoxia or hypercapnia; E43 Unspecified severe protein-calorie malnutrition; J15.1 Pneumonia due to Pseudomonas; Z99.11 Dependence on respirator [ventilator] status; J18.9 Pneumonia, unspecified organism; K56.600 Partial intestinal obstruction, unspecified as to cause; Z93.0 Tracheostomy status; D50.0 Iron deficiency anemia secondary to blood loss (chronic); K92.1 Melena; J44.9 Chronic obstructive pulmonary disease, unspecified; I10 Essential (primary) hypertension; F20.9 Schizophrenia, unspecified; Z68.26 Body mass index [BMI] 26.0-26.9, adult; Z93.1 Gastrostomy status; Z87.891 Personal history of nicotine dependence; Z99.81 Dependence on supplemental oxygen
CPT/HCPCS: C9113; G0378; J2185; J2765; J3490; J7030; J7042; J7620; Q0092; Q9967

== ENCOUNTER 2019-12-02 10:50 | Emergency (ER) | payer MEDICARE, OTHER ==
[~2019-12-02] VITALS: Ht 175.3 cm; Wt 77.1 kg
[~2019-12-02 10:50] MED LIST changes: +CARVEDILOL12.5 M1 TF; +CONSTULOSE10 GM/151 TF; +MIRALAX17 GM/Dose TF; +MULTIVITAMIN1 SGL TF; +PEPCID20 MG TF; +REG50I TF
[2019-12-02 11:00] VITALS: BP 160/89
[2019-12-02 11:30] LABS: BASOPHIL % 0.4 % (0-2); PLATELET COUNT 289 x10^3mcL (130-400)
[2019-12-02 11:36] LABS: RED CELL DISTRIBUTION WIDTH 15.3 % (11.5-14.5)
[2019-12-02 11:44] LABS: CHLORIDE SERUM 97 mmol/L (98-107); CREATININE SERUM 0.5 mg/dL (0.7-1.3); GLUCOSE SERUM 105 mg/dL (74-106); POTASSIUM SERUM 4.1 mmol/L (3.5-5.1); SODIUM SERUM 136 mmol/L (136-145)
[2019-12-02 11:49] LABS: ALBUMIN 1.9 g/dL (3.4-5.0); ALKALINE PHOSPHATASE 169 U/L (46-116); ALT/SGPT 26 U/L (16-63); AST/SGOT 18 U/L (15-37); BILIRUBIN TOTAL 0.2 mg/dL (0.20-1.00); TOTAL PROTEIN, SERUM 8.3 g/dL (6.4-8.2)
[2019-12-02 11:58] LABS: CARBON DIOXIDE > 45.0 mmol/L (21-32)
[2019-12-02 13:05] VITALS: BP 134/55
[2019-12-02 15:35] VITALS: BP 136/69
[2019-12-02 17:10] VITALS: BP 124/58
[2019-12-02 19:45] VITALS: BP 125/45
== END 2019-12-02 19:45 | disposition home or self-care (01) ==
LOC: ED 10:50
PROVIDERS: Emergency Medicine
DX: D64.89 Other specified anemias (principal); J18.9 Pneumonia, unspecified organism; Z99.11 Dependence on respirator [ventilator] status
CPT/HCPCS: J1885; J2270; J2405; J7040; P9016

== ENCOUNTER 2019-12-09 10:29 | Inpatient (IN) | payer OTHER, MEDICARE ==
[~2019-12-09] VITALS: Ht 167.6 cm; Wt 72.6 kg
[2019-12-09] VITALS (7 sets, daily range): BP systolic 122–149; BP diastolic 46–62; Ht 167.6 cm; Wt 72.6 kg
--- NOTE | 2019-12-09 10:39 | NUR ---
MSE COMPLETED BY DR DALLAS
--- NOTE | 2019-12-09 10:45 | NUR ---
PT [facility] "LEAKING G-TUBE" WITH BVM IN PROGRESS PT IS ON VENTILATOR AT FACILITY WHERE HE WAS BROUGHT IN FROM [facility] IN [place]. PT WAS SENT TO ED BY DR RAYGOZA WHO IS PTS ATTENDING PHYSICIAN. PT IS ABLE TO FOLLOW COMMANDS AWAKE AND ALERT. PUPILS EQUAL AND REACTIVE. PT HAS HX OF STROKE BED BOUND, NO RESP DISTRESS. PT PLACED ON VENTILATOR BY RT, G-TUBE IN PLACE PUS DRAINAGE NOTED WITH SKIN BREAKDOWN. PT ALSO HAS A WOUND TO LOWER BACK COCCYX AREA THAT IS COVERED WITH BANDAGE/DRESSING FROM FACILITY. IT IS NOTED THAT PT HAS REDNESS/RASH LIKE APPEARANCE TO BUTTOCK AREA, DIAPER IN PLACE. PT IS IN POSITION OF COMFORT. ON FULL CM WILL MONITOR
[2019-12-09 11:22] LABS: ALKALINE PHOSPHATASE 164 U/L (46-116); ALT/SGPT 24 U/L (16-63); AST/SGOT 30 U/L (15-37); BILIRUBIN TOTAL 0.4 mg/dL (0.20-1.00); C REACTIVE PROTEIN 10.2 mg/dL (<=0.9); CALCIUM 8.8 mg/dL (8.5-10.1); CHLORIDE SERUM 98 mmol/L (98-107); CREATININE SERUM 0.5 mg/dL (0.7-1.3); GLUCOSE SERUM 78 mg/dL (74-106); POTASSIUM SERUM 4.4 mmol/L (3.5-5.1); SODIUM SERUM 137 mmol/L (136-145); TOTAL PROTEIN, SERUM 7.9 g/dL (6.4-8.2)
[2019-12-09 11:27] LABS: ALBUMIN 1.6 g/dL (3.4-5.0); CARBON DIOXIDE 41.4 mmol/L (21-32)
[2019-12-09 11:42] LABS: PLATELET COUNT 193 x10^3mcL (130-400)
[2019-12-09 11:44] LABS: RED CELL DISTRIBUTION WIDTH 16.4 % (11.5-14.5)
[2019-12-09 11:52] LABS: SEGMENTED NEUTROPHILS 80 % (37-75)
--- NOTE | 2019-12-09 11:53 | NUR ---
RT AT BEDSIDE WITH TONIE SALGADO AND ANA LILIA ANTONIO RN PT TO CT VIA [place] ON PORTABLE CM.
[2019-12-09 11:54] LABS: MONOCYTE 10 % (0-7)
--- NOTE | 2019-12-09 12:00 | NUR ---
PT TRANSPORTED TO CAT SCAN ON VENTILATOR. AMBU BAG AT [facility]. PT TOLERATED WEL
--- NOTE | 2019-12-09 12:10 | NUR ---
RETURNED WITH PT TO ED BED T2B. ACCOMPANIED BY RT, EMT TONIE, AND MYSELF. NO INCIDENT NOTED. PT CONNECTED BACK TO FULL MONITOR.
[2019-12-09 12:36] LABS: ERYTHROCYTE SED RATE 117 mm/hr (0-20)
--- NOTE | 2019-12-09 12:45 | NUR ---
PT LYING IN BED COMFORTABLY NO DISTRESS. ON FULL CM VSS NO FURTHER ORDERS AT THIS TIME WILL MONITOR
--- NOTE | 2019-12-09 14:06 | NUR ---
NO FURTHER ORDERS AT THIS TIME. PT WROTE NOTE ASKING HOW MUCH LONGER, PT MADE AWARE I AM WAITING FOR POC BY ER . PT REMAINS ON VENTILATOR COMFORTABLE NO DISTRESS. WILL MONITOR
--- NOTE | 2019-12-09 14:34 | NUR ---
PT MADE AWARE OF POC PT AWARE HE WILL BE ADMITTED TO HOSPITAL
--- NOTE | 2019-12-09 15:11 | NUR ---
RT AT BEDSIDE TO SUCTION PTS TRACHEOSTOMY, PT TOLERATED PROCEDURE WELL.
--- NOTE | 2019-12-09 16:00 | NUR ---
REPORT GIVEN TO MG BEGUM RESUMING CARE OF PT
--- NOTE | 2019-12-09 16:10 | NUR ---
PT NOTED TO HAVE SOILED DIAPER LOOSE GREEN STOOL, [facility] PROVIDED NEW DIAPER PLACED UNDER PT, MG BEGUM NOTIFIED.
--- NOTE | 2019-12-09 16:21 | NUR ---
PT TRANSPORTED TO MED SURG FLOOR VIA [facility] RT AT BEDSIDE ASSISTING WITH VENTILATIONS VIA [facility] ACCOMPANIED PT WITH LIDA ZUÑIGA. PT AWAKE ALERT AWARE OF POC AND NODDED UNDERSTANDING.
--- NOTE | 2019-12-09 17:10 | NUR ---
RECEIVED PATIENT VIA GURNEY FROM ED, PATIENT ARRIVED FROM SNF. PATIENT AWAKE AND ALERT, UNABLE TO ASSESS ORIENTATION. PATIENT IS NON VERBAL DUE TO VENT. PATIENT DENIES GAVIN. TELE MONITOR IN PLACE #2, NSR. DENIES CHEST PAIN. PULSES PALPABLE X4, NO EDEMA NOTED. PATIENT IS [place] BILATERAL. PATIENT IS CONGESTED BILATERLLY, PATIENT ON VENTILATOR VIA TRACH. LAST BM NOTED 12/09/19, LOOSE STOOL. PATIENT IS INCONTINENT. PATIENT IS BEDFAST; GENERALIZED WEAKNESS NOTED > ON THE LEFT. SEE SKIN ASSESSMENT; PHOTOS TAKEN AND PLACED IN CHART. CALL LIGHT WITHIN REACH, BED IN LOW POSITION, WILL CONTINUE TO MONITOR.
[2019-12-09 17:31] LABS: IRON 30 ug/dL (65-170); TOTAL IRON BINDING CAPACITY 131 ug/dL (250-450)
[2019-12-09 17:40] LABS: RED BLOOD CELLS 2.37 M/mm3 (4.52-5.90)
--- NOTE | 2019-12-09 18:20 | NUR ---
PATIENT WAS MEDICATED WITH DILAUDID IVP PER DR. VIVEROS. DR. VIVEROS WILL BE REMOVING PATIENTS PEG TUBE IN 3O MINS.
--- NOTE | 2019-12-09 18:40 | NUR ---
DR. VIVEROS AT BEDSIDE, PATIENT PEG TUBE WAS REMOVED AT THIS TIME. DR. VIVEROS STATED FOR WOUND TO BE CLEANSED WITH BETADINE AND ISLAND DRESSING APPLIED. WILL CARRY OUT ORDERS AT THIS TIME.
--- NOTE | 2019-12-09 19:25 | NUR ---
Received pt. from day shift, currently resting in bed awake and alert w/ RT at bedside. Pt. is a/o x1, able to answer to name and respond to very simple yes and no questions. Pt. at this time has no c/o of h/a, pain, chest pain, or s/o SOB. Pt. is on chronic vent. Pt. came in for dislodged GTube and as per day shift, took it out today. Pt. GTube site dressing in tact w/ minimal drainage noted at this time. IV sites on LFA and Rt hand dressing in tact and flushing well at this time. Otherwise, pt. stable w/ pt. safety in check w/ call light placed within reach, pt. educated on when and how to use call light system, bed set at lowest postiion and HOB raised to semi-fowlers, will continue to monitor at this time.
--- NOTE | 2019-12-09 22:57 | NUR ---
Pt. at this time is a/o x3, able to make needs known when written down on a piece of paper and is able to follow simple commands within reach. Pt. was able to sign the consent for EGD/PEG as ordered by . Pt. is able to respond to his name, reoriented to the year 2019 (Pt. thought it was still 2018), and pt. knows where he is. Pt. did ask when he was going home, educated pt. on plan of care at this time, will continue to monitor pt. and endorse to next shift RN.
[2019-12-10] VITALS (9 sets, daily range): BP systolic 118–129; BP diastolic 46–63
--- NOTE | 2019-12-10 00:19 | NUR ---
Pt. at this time, is awake and alert. Pt. signed consent for EGD/PEG scheduled for 12/10/2009. otherwise, pt. stable, no c/o pain, SOB, chest pain, or s/o distress. Will continue to monitor pt. at this time.
--- NOTE | 2019-12-10 06:40 | NUR ---
Pt. c/o of generalized body pain at this time. Informed pt. that since he does not have a G Tube placed at this time, the only pain medication i can offer him was Morphine IVP. Pt. asked what the pain medication would cover, educated pt. that it should take care of the pain that he feels all throughout his body. Pt. throughout the shift was awake and asleep, in and out. When pt. was asleep, pt. was easily arousable using verbal stimuli. Pt. at this time requested that all blankets be taken off. otherwise, pt. stable throughout shift, no c/o of chest pain, SOB, or s/o distress. Pt. at this time also noted to have gargled sounds, called RT for PRN suctioning. Pt. agreed to the 1x suctioning, white secretions noted. small amount was taken out. Pt. refused second suctioning, RT offered half way insertion of the suction catheter, pt. refused. Pt. has no s/o SOB, will continue to monitor and endorse to next shift RN.
[2019-12-10 06:42] LABS: BASOPHIL % 0.3 % (0-2); PLATELET COUNT 196 x10^3mcL (130-400)
[2019-12-10 06:57] LABS: microscopic required? YES; urine erythrocyte TRACE (NEGATIVE)
[2019-12-10 07:12] LABS: CALCIUM 8.7 mg/dL (8.5-10.1); CARBON DIOXIDE 38.2 mmol/L (21-32); CHLORIDE SERUM 102 mmol/L (98-107); CREATININE SERUM 0.6 mg/dL (0.7-1.3); MAGNESIUM 2.2 mg/dL (1.8-2.4); PHOSPHOROUS 3.3 mg/dL (2.5-4.9); POTASSIUM SERUM 4.2 mmol/L (3.5-5.1); SODIUM SERUM 142 mmol/L (136-145)
--- NOTE | 2019-12-10 07:18 | NUR ---
RECEIVED PT FROM STRAINER TENDER NURSE. PT RESTING IN BED, AOX3, RESP E/U ON VENTILATOR VIA TRACH. NON VERBAL BUT ABLE TO MAKE NEEDS KNOWN VIA PEN/PAPER. C/O NAUSEA AT THIS TIME. COMFORT MEASURES IMPLEMENTED, WILL ADMINISTER PRN MEDS PER EMAR FOR NAUSEA. ON TELE 2 SHOWING SR W/ BBB, HR: 78. IV SALINE LOCKED TO LFA, IVF INFUSING WELL TO RH. DRESSING TO ABD OVER PRIOR PEG SITE CDI. BED IN LOWEST POSITION AND CALL LIGHT WITHIN REACH. WILL CONTINUE TO MONITOR.
[2019-12-10 07:41] LABS: RED CELL DISTRIBUTION WIDTH 16.3 % (11.5-14.5)
[2019-12-10 08:37] LABS: GLUCOSE SERUM 54 mg/dL (74-106)
--- NOTE | 2019-12-10 10:00 | NUR ---
PT SEEN BY DR. VIVEROS, EGD AND PEG TUBE INSERTION DONE AT BEDSIDE. DRESSING TO ABD OVER PEG SITE CDI. PER DR. VIVEROS, TUBE FEEDING IS TO START AFTER I AND D IS DONE BY DR. WARREN THIS AFTERNOON.
--- NOTE | 2019-12-10 12:30 | NUR ---
PT BROUGHT DOWN FOR I AND D AT THIS TIME.
--- NOTE | 2019-12-10 15:00 | NUR ---
TUBE FEEDING STARTED AT THIS TIME. GLUCERNA 1.2 AT 20ML/HR INFUSING WELL.
--- NOTE | 2019-12-10 17:00 | NUR ---
PT SEEN AT BEDSIDE W/ LIBRARY CIRCULATION ASSISTANT. REFUSED TO HAVE BLOOD DRAWN FOR VANCO TROUGH, INFORMED PT OF IMPORTANCE OF VANCO TROUGH FOR CORRECT DOSING OF MEDICATION, PT STILL REFUSED. AGITATED AT THIS TIME. INFORMED DR. LE. INFORMED PHARMACIST KAYLIE. INSTRUCTED TO CONTINUE VANCO 1 GM IV SCHEDULED, ORDER PLACED FOR VANCO TROUGH ON 12/11/19 AT 0500.
--- NOTE | 2019-12-10 18:22 | NUR ---
PT IN BED SLEEPING, AROUSABLE, RESP E/U ON VENT. NO SIGNS OF ACUTE DISTRESS NOTED. IV TO R HAND W/ NO SIGNS OF INIFILTRAION, SALINE LOCK TO LFA W/ NO ERYTHEMA OR EDEMA. GLUCERIN 1.2 INFUSING WELL VIA PEG TUBE AT 20 ML/HR, ABD DRESSING CDI. BED IN LOWEST POSITION AND CALL LIGHT WITHIN REACH. WILL ENDORSE TO ONCOMING NURSE.
[2019-12-10 19:11] LABS: FREE T4 1.02 ng/dL (0.76-1.46); FREE THYROXINE INDEX 1.7 ug/dL (1.4-4.5)
[2019-12-10 19:12] LABS: T3 TOTAL 0.59 ng/mL
--- NOTE | 2019-12-10 20:24 | NUR ---
PT CURRENTLY RESTING IN BED, NO ACUTE DISTRESS. A/O X3, NONVERBAL. TELE #2 SHOWING SINUS RHYTHM WITH BBB, DENIES CHEST PAIN. PULSES PALPABLE IN ALL EXTREMITIES, BLE EDEMA +1 NOTED. LUNG SOUNDS DIMINISHED BILATERALLY, NO RESPIRATORY DISTRESS NOTED. TRACH IN PLACE TO VENT. TUBE FEEDING IN PLACE, GLUCERNA 1.2 @ 20ML/HR, FWF 30ML Q4H, NO RESIDUAL NOTED. INCONTINENT. GENERALIZED WEAKNESS. LUE ECCHYMOSIS ADAM. ERRYTHEMA TO ABD FOLDS, SCROTUM, AND BUTTOCKS, CLEANING HANDYMAN. S/P REMOVAL OF DISLODGED PEG, ABD DRESSING CDI. IV PATENT AND INTACT. BED IN LOWEST POSITION, SIDE RAILS UP X2, CALL LIGHT WITHIN REACH. WILL CONTINUE TO MONITOR.
[2019-12-11] VITALS (9 sets, daily range): BP systolic 109–127; BP diastolic 41–55
--- NOTE | 2019-12-11 00:02 | NUR ---
PT CURRENTLY RESTING IN BED, NO ACUTE DISTRESS. REPOSITIONED PT. WILL CONTINUE TO MONITOR.
--- NOTE | 2019-12-11 02:55 | NUR ---
PT CLEANED WITH ASSISTANCE FROM ANTOINE HORN, URINE AND WATERY STOOL NOTED. PT C/O LEG PAIN 08/10, MEDICATED PER EMAR. WILL CONTINUE TO MONITOR.
--- NOTE | 2019-12-11 03:00 | NUR ---
NO RESIDUAL IN TUBE FEEDING NOTED, FEEDING ADVANCED TO 30ML/HR. WILL CONTINUE TO MONITOR.
--- NOTE | 2019-12-11 06:14 | NUR ---
PT SLEPT PERIODICALLY THROUGHOUT NIGHT, NO ACUTE DISTRESS. ALL NEEDS MET AND ATTENDED TO. NO SIGNIFICANT CHANGES. IV PATENT AND INTACT. MEDICATED PAIN PER EMAR. BED IN LOWEST POSITION, SIDE RAILS UP X2, CALL LIGHT WITHIN REACH. WILL ENDORSE CARE TO ONCOMING NURSE.
[2019-12-11 07:02] LABS: CALCIUM 8.6 mg/dL (8.5-10.1); CARBON DIOXIDE 38.7 mmol/L (21-32); CHLORIDE SERUM 95 mmol/L (98-107); CREATININE SERUM 0.7 mg/dL (0.7-1.3); GLUCOSE SERUM 112 mg/dL (74-106); MAGNESIUM 2.2 mg/dL (1.8-2.4); POTASSIUM SERUM 3.9 mmol/L (3.5-5.1); SODIUM SERUM 134 mmol/L (136-145)
--- NOTE | 2019-12-11 07:07 | NUR ---
RECEIVED PT FROM HOME CARE AND HOME HEALTH AIDES TEACHER NURSE. PT IN BED SLEEPING, AROUSABLE, RESP E/U ON VENT VIA TRACH. NO ACUTE DISTRESS NOTED. ON TELE 2 SHOWING SR W/ BBB, HR: 71. IV SALINE LOCK TO LFA, IV TO R HAND W/ NO SIGNS OF INFILTRATION. RECEIVING GLUCERNA 1.2 TO PEG TUBE AT 20 ML/HR, INFUSING WELL. BED IN LOWEST POSITION AND CALL LIGHT WITHIN REACH. WILL CONTINUE TO MONITOR.
[2019-12-11 08:20] LABS: BASOPHIL % 0 % (0-2); RED CELL DISTRIBUTION WIDTH 16.5 % (11.5-14.5)
--- NOTE | 2019-12-11 08:36 | NUR ---
DR. JIMENEZ MADE AWARE OF H/H IS 6.6/.
[2019-12-11 09:57] LABS: PLATELET COUNT 189 x10^3mcL (130-400)
--- NOTE | 2019-12-11 12:37 | NUR ---
TRANSFUSION OF 1 UNIT PRBC STARTED AT THIS TIME. INITIAL VS FOLLOWS: T: 99.8, HR: 64, BP 113/43, RR: 18, O2: 95% ON VENT VIA TRACH. VERIFIED BLOOD PRODUCT W/ RN SUPIN. WILL CONTINUE TO MONITOR.
[2019-12-11 14:32] LABS: rbc morphology (normal/abnorm) ABNORMAL (NORMAL)
--- NOTE | 2019-12-11 15:00 | NUR ---
PEG TUBE ASPIRATED AT THIS TIME W/ NO GASTRIC RESIDUAL. FEEDING RATE INCREASED FROM 30 ML/HR TO 50 ML/HR, INFUSING WELL.
--- NOTE | 2019-12-11 15:15 | NUR ---
INFUSION OF 1 UNIT PRBC COMPLETED AT THIS TIME. NO SIGNS OF ADVERSE REACTIONS NOTED. VS FOLLOWS: T: 98.6, HR: 76, BP: 109/55, RR: 16, O2: 98% ON VENT VIA TRACH. WILL CONTINUE TO MONITOR.
--- NOTE | 2019-12-11 18:17 | NUR ---
PT RESTING IN BED WATCHING TV, AOX3, RESP E/U ON VENT VIA TRACH. NO ACUTE DISTRESS NOTED. IV TO LFA SALINE LOCKED, IVF INFUSING WELL TO RH. GLUCERNA 1.2 INFUSING WELL TO PEG TUBE AT 50 ML/HR. DRESSING TO ABD OVER OLD PEG SITE CDI. BED IN LOWEST POSITION AND CALL LIGHT WITHIN REACH. WILL ENDORSE TO ONCOMING NURSE.
--- NOTE | 2019-12-11 20:09 | NUR ---
PT CURRENTLY RESTING IN BED, NO ACUTE DISTRESS. A/O X3, NONVERBAL. TRACH IN PLACE TO VENT. TELE #2 SHOWING SINUS RHYTHM, NO ACUTE DISTRESS NOTED. PULSES PALPABLE IN ALL EXTREMITIES, BUE AND BLE EDEMA +1. LUNG SOUNDS FINE CRACKLES BILATERALLY, NO RESPIRATORY DISTRESS NOTED. BOWEL SOUNDS ACTIVE, LAST BM 12/11/19 LOOSE STOOLS. INCONTINENT. GENERALIZED WEAKNESS, BEDBOUND. LUE ECCHYMOSIS ADAM. ERRYTHEMA TO ABD FOLDS, SCROTUM, AND BUTTOCKS, HYRDAGUARD APPLIED. IV PATENT AND INTACT. RECEIVED ORDERS FROM DR BAEZ TO [place] NS. RT AT BEDSIDE TO PROVIDED SUCTIONING. BED IN LOWEST POSITION, SIDE RAILS UP X2, CALL LIGHT WITHIN REACH. WILL CONTINUE TO MONITOR.
[2019-12-11 20:21] LABS: BASOPHIL % 0.1 % (0-2); PLATELET COUNT 180 x10^3mcL (130-400)
[2019-12-11 20:22] LABS: RED CELL DISTRIBUTION WIDTH 17.5 % (11.5-14.5)
--- NOTE | 2019-12-11 23:52 | NUR ---
PT CURRENTLY RESTING IN BED, NO ACUTE DISTRESS. WILL CONTINUE TO MONITOR.
[2019-12-12] VITALS (10 sets, daily range): BP systolic 118–134; BP diastolic 45–55
--- NOTE | 2019-12-12 01:00 | NUR ---
PT CLEANED AND REPOSITIONED WITH ASSISTANCE FROM ANTOINE PONCE. CURRENTLY RESTING IN BED, NO ACUTE DISTRESS. WILL CONTINUE TO MONITOR.
--- NOTE | 2019-12-12 03:27 | NUR ---
NO RESIDUAL NOTED TO TUBE FEEDING, FEEDING ADVANCED TO 60ML/HR. PT REFUSING TO BE REPOSITIONED. WILL CONTINUE TO MONITOR.
--- NOTE | 2019-12-12 05:12 | NUR ---
PT CLEANED AND REPOSITIONED. SACRAL OPTIFOAM DRESSING CHANGED. CURRENTLY RESTING IN BED, NO ACUTE DISTRESS. WILL CONTINUE TO MONITOR.
[2019-12-12 06:58] LABS: PLATELET COUNT 172 x10^3mcL (130-400)
[2019-12-12 07:23] LABS: CALCIUM 8.1 mg/dL (8.5-10.1); CARBON DIOXIDE 39.1 mmol/L (21-32); CHLORIDE SERUM 100 mmol/L (98-107); CREATININE SERUM 0.7 mg/dL (0.7-1.3); GLUCOSE SERUM 117 mg/dL (74-106); MAGNESIUM 2.1 mg/dL (1.8-2.4); PHOSPHOROUS 3.4 mg/dL (2.5-4.9); POTASSIUM SERUM 4.5 mmol/L (3.5-5.1); SODIUM SERUM 139 mmol/L (136-145)
[2019-12-12 07:32] LABS: BASOPHIL % 0 % (0-2); RED CELL DISTRIBUTION WIDTH 17.8 % (11.5-14.5)
--- NOTE | 2019-12-12 15:27 | NUR ---
Initial Nutrition Assessment- [facility] 239T-B Dx: Dislodged G-tube PMHx: Chronic respiratory failure s/p tracheostomy in 2018, COPD and Schizophrenia PSHx: tracheostomy and PEG tube placement Labs: (12/12) BH, Ca:8.1L, H/H:7.8/24L Meds: Coreg, Ferrous sulfate, Folic acid, Lasix, Morphine, Portal, Norvasc, Reglan, Remeron, Tylenol, Vancomycin, Zyprexa, Current Nutrition Support: Glucerna 1.2 @ 60ml/hr, FWF:30ml q 4hr via G-tube. Provides 1728kcal, 86g protein. GRV: (12/12) 0ml Ht: 66in, 5'6" Wt:159#, 72.575kg BMI: 25.8kg/m2 (overweight) IBW: 142#, 65kg %IBW:120% UBW: unable to obtain d/t tracheostomy Age: 74 y/o male Food Allergies: NKFA Skin :errythmea to abd folds, scrotum, buttocks and perineum Lon:13 Edema: BLE and BUE +1 GI: active bowel sounds Last BM:12/12 Per H&P, pt admitted with PEG tube malfunction, drainage and malfunction. Per Dr. Parry, pt has been havng malfunction and purulent discharge from PEG site and has recurrent SOB and aspiration PNA. Per progress note 12/12, pt continues on IV abx with culture and sensitivity pending. During visit, pt was seen with trach and TF running as ordered. Per RN Charles, pt with 0ml GRV with possible discharge planning back to SNF. Nursing Trigger or Consult - Admitted with potential risk dx, wound consult Problem with: N/V/D/C: no Problems with: Chewing/Swallowing: Yes, pt on TF Current appetite: N/A due to pt on TF Recent wt changes: unable to obtain %wt change: N/A Vitamin/Supplement: MVI per admission assessment Special Diet at Home: unable to obtain Physical activity: N/A Education: unable to provide due to pt with trach Estimated Nutritional Needs Based on actual body weight of 72 kg. Energy: 5975-7295 kcal/d (25-30 kcal/kg for maintenance) Protein: 72-86 gm/d (1-1.2 gm/kg for geriatric maintenance) Fluid: 3241-2890 mL/d (1 mL/kcal) or per MD. Nutrition Diagnosis 1. No nutrition dx at this time. Pt is tolerating TF and meeting estimated needs. Intervention/RDN Recommendation(s): 1. Recommend continue Glucerna 1.2 @ 60ml/hr, FWF:30ml q 4hr via G-tube. This provides 1728kcal, 86g protein. 96% caloric needs and 100% protein needs. Monitor/Evaluate Goal: TF intake to meet 75% estimated needs with tolerance Monitor: TF intake/tolerance, Labs, GI function, Skin integrity, Weights. F/U in 2-3days as high risk (12/14-)
--- NOTE | 2019-12-12 15:28 | NUR ---
1. Recommend continue Glucerna 1.2 @ 60ml/hr, FWF:30ml q 4hr via G-tube. This provides 1728kcal, 86g protein. 96% caloric needs and 100% protein needs.
--- NOTE | 2019-12-12 19:30 | NUR ---
Pt. received fromd ay shift, currently resting in bed, a/o x3, able to make some needs known, able to follow commands, no c/o h/a at this time. Pt. is [place] bilaterally, is unable to talk d/t trach / vent in place. Pt. at this time has no c/o chest pain, SOB, or s/o distress. Pt. did indicate that he would like something for pain, will medicate pt. with [place] as ordered via G-tube in place. As per day shift, Pt. is ready to be d/c back to old facility, awaiting c/m and s/s for placement at old facility [facility]. Pt. safety in check w/ call light placed within reach, bed set at lowest position, will continue to monitor.
--- NOTE | 2019-12-12 19:35 | NUR ---
REPORT GIVEN TO FOREX TRADER NURSE CARE ENDORSED
--- NOTE | 2019-12-13 02:15 | NUR ---
PT IV on LFA, pt stated to priyank hauser. IV site was d/c'd and pt. tolerated it well. New IV started by KEL Zavala on the Left Upper Arm / shoulder region near the axillae. Will continue to monitor pt. and endorse to next shift RN
[2019-12-13 04:48] VITALS: BP 119/36
--- NOTE | 2019-12-13 06:55 | NUR ---
Pt. currently awake at this time, d/c the IV on the Right hand. Pt. tolerated it well. Pt. c/o pain on both IV sites throughout night, d/c'd both, new IV placed on left shoulder. otherwise, Pt. stable, no c/o of pain, s/o chest pain, respiratory distress, or discomfort. Will continue to monitor pt. until end of shift and endorse to oncoming RN.
[2019-12-13 07:07] LABS: CALCIUM 8.1 mg/dL (8.5-10.1); CARBON DIOXIDE 39.1 mmol/L (21-32); CHLORIDE SERUM 97 mmol/L (98-107); CREATININE SERUM 0.7 mg/dL (0.7-1.3); GLUCOSE SERUM 90 mg/dL (74-106); POTASSIUM SERUM 4.4 mmol/L (3.5-5.1); SODIUM SERUM 138 mmol/L (136-145)
[2019-12-13 07:14] LABS: PLATELET COUNT 156 x10^3mcL (130-400)
--- NOTE | 2019-12-13 07:45 | NUR ---
REPORT RECEIVED FROM KEL MIRANDA. PATIENT RESTING WITH TRACH. NO SIGNS OF DISTRESS.
[2019-12-13 07:59] LABS: BASOPHIL % 0 % (0-2); RED CELL DISTRIBUTION WIDTH 16.7 % (11.5-14.5)
[2019-12-13 08:52] VITALS: BP 115/39
[2019-12-13] MEDS ORDERED: NOVAPLUS ZOSYN50 ML IV (12:09)
[2019-12-13 13:16] VITALS: BP 115/39
--- NOTE | 2019-12-13 15:34 | NUR ---
PATIENT HAS NOT HAD A BM AT THE MOMENT.
--- NOTE | 2019-12-13 15:45 | NUR ---
SPOKE WITH SRINATH, ADMISSIONS FROM [facility] AT . SRINATH EXPLAINED THAT PATIENT DOES NOT HAVE A ROOM AVAILABLE AT THIS TIME AT THEIR FACILITY BECAUSE THE ROOM IS AN ISOLATION ROOM FOR ANOTHER PATIENT. PATIENT MADE AWARE. WILL ENDORSE TO CHARGE NURSE AND CLINICAL STAFF ANESTHESIOLOGIST.
--- NOTE | 2019-12-13 19:05 | NUR ---
REPORT RECEIVED FROM DAY SHIFT RN. PATIENT WAS SEEN RESTING COMFORTABLY IN BED. NO DISTRESS NOTED. BREATHING EVEN AND UNLABORED. TRACH AND VENT. NO SOB OR RESP DISTRESS NOTED. CONTINUOUS PULSE OX READING 99%. DENIES CHEST PAIN/PRESSURE. NO C/O PAIN. DENIES CHEST PAIN. RUQ PEG TUBE IN PLACE WITH CONTINUOUS TUBE FEEDING AY 60 ML/HR WITH FWF 30 Q4H. TOLERATING WELL. IV TO THE LEFT SHOULDER. PATENT AND INTACT. NO REDNESS OR SWELLING NOTED. COMFORT AND SAFETY MEASURES IN PLACE. BED IS LOCKED AND IN THE LOWEST POSITION. SIDE RAILS UP X2. CALL LIGHT IS WITHIN REACH. WILL CONTINUE TO MONITOR.
--- NOTE | 2019-12-13 19:05 | NUR ---
REPORT RECEIVED FROM DAY SHIFT RN. PATIENT WAS SEEN RESTING COMFORTABLY IN BED. NO DISTRESS NOTED. BREATHING EVEN AND UNLABORED. TRACH AND VENT. NO SOB OR RESP DISTRESS NOTED. CONTINUOUS PULSE OX READING 99%. DENIES CHEST PAIN/PRESSURE. NO C/O PAIN. DENIES CHEST PAIN. LUQ PEG TUBE IN PLACE WITH CONTINUOUS TUBE FEEDING AY 60 ML/HR WITH FWF 30 Q4H. TOLERATING WELL. IV TO THE LEFT SHOULDER. PATENT AND INTACT. NO REDNESS OR SWELLING NOTED. COMFORT AND SAFETY MEASURES IN PLACE. BED IS LOCKED AND IN THE LOWEST POSITION. SIDE RAILS UP X2. CALL LIGHT IS WITHIN REACH. WILL CONTINUE TO MONITOR.
--- NOTE | 2019-12-13 20:00 | NUR ---
NOTIFIED DR BA ABOUT HIGH FERRITIN [phone]
[2019-12-13 20:30] VITALS: BP 138/79
[2019-12-13 21:18] VITALS: BP 138/79
[2019-12-13 22:30] VITALS: BP 138/79
--- NOTE | 2019-12-13 22:45 | NUR ---
PATIENT VOIDED. CLEANED AND CHANGED W/ JOSE, ANTOINE. PATIENT TOLERATED WELL. REPOSITIONED TO LEFT SIDE FOR COMFORT. BREATHING EVEN AND UNLABORED ON TRACH/VENT. NO SOB NOTED. DENIES PAIN. SAFETY MEASURES IN PLACE. CALL LIGHT IS WITHIN REACH. WILL CONTINUE TO MONITOR.
[2019-12-14] VITALS (7 sets, daily range): BP systolic 121–138; BP diastolic 46–79
--- NOTE | 2019-12-14 01:13 | NUR ---
RESTING IN BED WATCHING TV. NO DISTRESS NOTED. BREATHING EVEN AND UNLABORED ON TRACH/VENT. NO SOB NOTED. DENIES PAIN. TUBE FEEDING IN PLACE AT 60ML/HR. SAFETY MEASURES IN PLACE. CALL LIGHT IS WITHIN REACH. WILL CONTINUE TO MONITOR
--- NOTE | 2019-12-14 04:42 | NUR ---
SUCTIONED PATIENT PER REQUEST. NO SECRETIONS NOTED. NO DISTRESS NOTED. BREATHING EVEN. DENIES PAIN. WILL CONTINUE TO MONITOR.
--- NOTE | 2019-12-14 05:55 | NUR ---
RESTED IN SHORT INTERVALS THROUGHOUT THE NIGHT. NO ACUTE CHANGES NOTED. BREATHING EVEN AND UNLABORED ON TRACH/VENT. NO DISTRESS NOTED. NO SOB NOTED. DENIES PAIN THROUGHOUT THE NIGHT. DENIES CHEST PAIN. TUBE FEEDING AT 60 ML/HR (GOAL). TOLERATING WELL. 0 ML OF RESIDUALS NOTED. IV TO THE LEFT SHOULDER. PATENT AND INTACT. NO REDNESS OR SWELLING NOTED. SAFETY MEASURES IN PLACE. CALL LIGHT IS WITHIN REACH. WILL CONTINUE TO MONITOR AND ENDORSE CARE TO DAY SHIFT RN.
--- NOTE | 2019-12-14 07:30 | NUR ---
A&OX3, FOLLOWS COMMANDS AND COOPERATES WELL. TELE #2, DENIES CHEST PAIN. PERIPHERAL PULSES PALPABLE W/ BLE +1 EDEMA. LUNG SOUNDS DIMINISHED BILATERALLY, ON TRACH/VENT, O2 SAT 97%. ABD DISTENDED/FIRM, BUT NORMOACTIVE BSX4 AND DENIES ABD PAIN. INCONTINENT. GENERALIZED WEAKNESS. BEDBOUND. ERYTHEMA ON BUTTOCK, ABD FOLDS, SCROTUM. L ABD WOUND CDI. L HEEL DRESSING CDI. LUE ECCHYMOSIS. DENIES ANY PAIN OR DISCOMFORT AT THIS TIME. L SHOULDER IV SITE IS CDI. WILL CONTINUE TO MONITOR. PLAN IS FOR POSSIBLE TRANSFER TO SNF.
--- NOTE | 2019-12-14 08:25 | NUR ---
REPORT GIVEN TO KEL ESPANA. PATIENT IN STABLE CONDITION. PATIENT TURNED PER Q2H TURN.
--- NOTE | 2019-12-14 12:56 | NUR ---
WOUND CARE EVALUATION NOTE: REASON FOR EVALUATION: LOW INÉS SCORE AND SURGICAL WOUND SKIN ASSESSMENT DONE WITH THIS 74 Y/O MALE PT [facility] [facility] [place] [facility] [place] PEG TUBE MALFUNCTION. PAST MEDICAL HX INCLUDES COPD, CHRONIC TRACH AND SCHIZOPHRENIA. ALL ABOVE INFORMATION OBTAINED FROM ADMISSION H&P. PT IS AWAKE ALERT ABLE TO UNDERSTAND WITH LIPS READING. PT. SKIN IS WARM AND DRY, BLE FEW HAIR GROWTH, NO EDEMA. DORSAL PEDAL PULSES PRESENT AND NORMAL. CAPILLARY REFILLED < 2 SEC. INCONTINENT OF BOWEL AND BLADDER. PLAN OF CARE DISCUSSED WITH PRIMARY RN. INTEGUMENTARY: -TRACH SITE DEBBI STOMA SKIN DRY AND CLEAN. SKIN INTACT. -LUQ ABDOMEN OLD GT SITE SURGICAL WOUND S/P DEBRIDEMENT 4X3X1.2CM WOUND BED 100% GRANULATING TISSUE MOIST, NO ODOR, DEBBI WOUND SKIN EROSION AND REDNESS. -MOISTURE ASSOCIATE DERMATITIS (MAD) TO: B/L GROINS EXTENDED TO SCROTAL AREA AND R/L BUTTOCKS -BLANCHABLE REDNESS TO RIGHT HEEL -PRESSURE ULCER STAGE 2 TO SACRAL 1X2CM, WOUND BED IS 100% PINK, MOIST NO ODOR, DEBBI-WOUND SKIN INTACT -PRESSURE ULCER STAGE 1 TO LEFT HEEL WITH 2X2 MEDIAL HEEL NONBLANCHABLE REDNESS AND SURROUNDING TISSUE 4X3CM PALE IN COLOR AND MUSHY TO TOUCHED FURTHER DAMAGE INDICATED -BLANCHABLE REDNESS TO RIGHT HEEL RECOMMENDATIONS: -APPLY HYDRAGUARD TO B/L GROINS EXTENDED TO SCROTAL AREA AND R/L BUTTOCKS BID AND ADAM - CLEANSE OLD GT SITE SURGICAL WOUND WITH NS, PACK WITH " IODOFORM AND APPLY Z GUARD TO DEBBI WOUND SKIN, COVER WITH ISLAND DRESSING QD AND PRN - SACRAL WOUND CLEANSE WITH NS. PAT DRY, APPLY Z GUARD AND COVER WITH FOAM DRESSING DAILY AND PRN IF SOILING -APPLY FOAM DRESSING AND HEEL RAISER TO LEFT HEEL AT ALL TIMES -OFFLOAD BILATERAL HEELS BY PLACING PILLOWS UNDER CALVES UNLESS OTHERWISE CONTRAINDICATED -PRESSURE REDISTRIBUTION SURFACE THERAPY -TURN AND REPOSITION Q2H, OFFLOAD SACRALCOCCYX AND BUTTOCKS BY TURNING RIGHT AND LEFT -CONTINUE TO FOLLOW RD RECOMMENDATIONS ALL ABOVE RECOMMENDATIONS DISCUSSED WITH PRIMARY RN. WILL FOLLOW UP PT Q7-10 DAYS. PLEASE CONTACT WOUND CARE NURSE FOR ANY QUESTION AND CHANGE OF WOUND CONDITION.
--- NOTE | 2019-12-14 18:26 | NUR ---
PATIENT IS A&OX3. PATIENT IS CURRENTLY RESTING WHILE WATCHING TELEVISION. PATIENT DENIES ANY PAIN OR DISCOMFORT AT THIS TIME. PLAN IS TO BE TRANSFERRED VIA [facility] TRANSPORT WITH RESPIRATORY THERAPIST TO [facility] IN [place] AFTER 1999. WILL CONTINUE TO MONITOR.
--- NOTE | 2019-12-14 20:13 | NUR ---
PATIENT TRANSFERED TO [facility] VIA [facility]. REPORT GIVEN TO [facility]. TRANSFER PACKET GIVEN TO [facility]. WILL CONTINUE TO MONITOR.
== END 2019-12-14 20:26 | DRG 229 ==
LOC: ED 10:29 → DU 14:30 → MU 14:30 → DU 17:55
PROVIDERS: Internal Medicine Gastroenterology; Student in an Organized Health Care Education/Training Program; Surgery; ADMIT Family Medicine
PROC: 5A1955Z Respiratory Ventilation, Greater than 96 Consecutive Hours (ICD-10-PCS; 2019-12-09)
PROC: 0HB7XZZ Excision of Abdomen Skin, External Approach (ICD-10-PCS; principal; 2019-12-10 10:00)
DX: K94.23 Gastrostomy malfunction (principal); J69.0 Pneumonitis due to inhalation of food and vomit; K56.600 Partial intestinal obstruction, unspecified as to cause; J96.10 Chronic respiratory failure, unspecified whether with hypoxia or hypercapnia; L03.311 Cellulitis of abdominal wall; Y83.8 Other surgical procedures as the cause of abnormal reaction of the patient, or of later complication, without mention of misadventure at the time of the procedure; D50.9 Iron deficiency anemia, unspecified; F20.9 Schizophrenia, unspecified; I10 Essential (primary) hypertension; Z68.25 Body mass index [BMI] 25.0-25.9, adult
CPT/HCPCS: 43235; 82962; 84439; 87046; 87046-59; G0378; J1170; J1200; J1610; J1940; J2001; J2250; J2270; J2310; J2405; J2543; J3010; J3370; J3490; J7030; J7050; J7120; J7620; J8597; P9016; Q0092; Q0163; Q9967